=== PATIENT | male | born 1955 | race Caucasian/White ===

== ENCOUNTER 2020-06-28 22:44 | Inpatient (IN) | payer MEDICARE, OTHER ==
[~2020-06-28] VITALS: Ht 180.3 cm; Wt 103.9 kg
[2020-06-28 22:42] VITALS: BP 140/78
[2020-06-28] MEDS ORDERED: MAG HYDROX/AL HYDROX/SIMETH 30 ML LIQUID UDC PO PRN (23:00)
[2020-06-28] MEDS ORDERED: MAGNESIUM HYDROXIDE 30 ML LIQUID UDC PO PRN (23:00)
[2020-06-28] MEDS ORDERED: ACETAMINOPHEN 325 MG TABLET PO PRN (23:00)
[2020-06-28] MEDS ORDERED: BLOOD SUGAR DIAGNOSTIC 1 EACH STRIP VI ONE (23:00)
[2020-06-28] MEDS ORDERED: TAMS-3 PO (23:28)
[2020-06-28] MEDS ORDERED: METF-495 PO (23:28)
[2020-06-28] MEDS ORDERED: SIMV-46 PO (23:28)
[2020-06-28] MEDS ORDERED: [UNRECOGNIZED DRUG - CODE] MC (23:28)
[2020-06-28] MEDS ORDERED: DIVA-78 PO (23:28)
[2020-06-28] MEDS ORDERED: CHOL10002 PO (23:28)
[2020-06-28] MEDS ORDERED: SITA100T PO (23:28)
[2020-06-28] MEDS ORDERED: BUDE10.2 IH (23:28)
[2020-06-28] MEDS ORDERED: ARIP20TA4 PO (23:28)
[2020-06-28] MEDS ORDERED: AMLO10TA4 PO (23:28)
[2020-06-28] MEDS ORDERED: MULT-594 PO (23:28)
[2020-06-28] MEDS ORDERED: [UNRECOGNIZED DRUG - CODE] PO (23:28)
[2020-06-28] MEDS ORDERED: CLOZ150T3 PO (23:28)
--- NOTE | 2020-06-28 23:45 | NUR ---
ADMISSION NOTE: AT APPROX 2245 ADMITTED,ADMITTED 65 YEARS OLD MALE TO [facility] M[facility] ON A 5150 FOR GD. PATIENT WAS BIB AMBULANCE [facility] IN [place]. PER HOLD, PATIENT RESIDES AT [facility] WHERE STAFF REPORTED THAT ON 06/27/2020 AT 1300, PATIENT WAS INCREASINGLY SLURRING HIS SPEECH. SUBSEQUENTLY, HE WAS PLACED ON A 5150 HOLD FOR GROSSLY DISORGANIZED AND ACUTELY PSYCHOTIC. HOLD WILL BE UP ON 07/01/20 AT 1035. UPON ADMISSION, FACE TO FACE ASSESSES WAS DONE, ADVISEMENT WAS GIVEN WELL HIS BOOKLET FOR "PATIENT'S RIGHT FOR MENTAL HEALTH FACILITIES". PATIENT REFLECTS WHAT IS WRITTEN ON THE HOLD. HE IS NOTED A/O X 2. CALM AND COOPERATIVE. HE KNOWS HIS NAME, HE STATED THAT IS THE END OF JUNE AND YEAR 2020 IS NEXT; HOWEVER, HE STATED THAT HE IS IN A HOTEL AND WAS NOT SURE WHY HE WAS BROUGHT TO THE HOSPITAL FOR. PATIENT NOTED TANGENTAL, NONSENSICAL, WORD SALAD AND DISORGANIZED SPEECH. HE DENIED SI/HI/VH/AH. PATIENT SHOWER. ACCUCHECKS 136. BELONGING LIST WAS COMPLETED, CONTRABAND ITEMS WERE REMOVED FROM PATIENT AND SECURED. PATIENT IS UNDER THE CARE OF DR SPARKS AND DR VALENTINO. WILL CONTINUE TO MONITOR.
[2020-06-29 07:30] VITALS: BP 110/76
[2020-06-29] MEDS: NICOTINE 14 MG/24HR PATCH TD SCH (08:49)
[2020-06-29 11:00] LABS: BASOPHILS % (AUTO) 0.3 % (0.0-2.0); EOSINOPHILS # (AUTO) 0.1 K/uL (0.0-0.7); HEMATOCRIT 41.8 % (36.7-47.1); HEMOGLOBIN 14.1 g/dL (12.5-16.3); LYMPHOCYTES # (AUTO) 1.7 K/uL (20.0-40.0); LYMPHOCYTES % (AUTO) 21.3 % (20.5-51.5); MEAN CORPUSCULAR HEMOGLOBIN 29.2 uug (23.8-33.4); MEAN CORPUSCULAR HGB CONC 34 g/dL (32.5-36.3); MEAN CORPUSCULAR VOLUME 86.5 fL (73.0-96.2); MONOCYTES # (AUTO) 0.7 K/uL (2.0-10.0); MONOCYTES % (AUTO) 8.7 % (0.0-11.0); NEUTROPHILS # (AUTO) 5.5 K/uL (1.8-8.9); NEUTROPHILS % (AUTO) 68.7 % (38.5-71.5); PLATELET COUNT (AUTO) 180 K/uL (152-348); RED BLOOD CELL COUNT(AUTO) 4.83 MIL/uL (4.06-5.63)
[2020-06-29] MEDS ORDERED: DEXTROSE 50% 50 ML DISP.SYRIN IV PRN (11:00)
[2020-06-29 11:24] LABS: CREATININE 0.9 mg/dL (0.6-1.3); POTASSIUM 3.9 mmol/L (3.5-5.1)
[2020-06-29] MEDS: BLOOD SUGAR DIAGNOSTIC 1 EACH STRIP VI SCH ×3 (11:30→20:15)
[2020-06-29 12:51] LABS: BILIRUBIN,TOTAL 0.4 mg/dL (0.2-1.0)
[2020-06-29 13:11] LABS: BILIRUBIN,DIRECT 0.1 mg/dL (0.0-0.2)
[2020-06-29 16:00] VITALS: BP 146/72
[2020-06-29] MEDS: INSULIN REGULAR, HUMAN 300 UNIT/3 ML VIAL SQ PRN (16:04)
[2020-06-29] MEDS: ARIPIPRAZOLE 5 MG TABLET PO SCH (16:12)
[2020-06-29] MEDS: DIVALPROEX 250 MG TABLET.DR PO SCH (16:12)
[2020-06-29] MEDS: METFORMIN HCL 500 MG TABLET PO SCH (17:08)
[2020-06-29 20:00] VITALS: BP 124/68
[2020-06-29] MEDS: SIMVASTATIN 20 MG TABLET PO SCH (20:14)
[2020-06-29] MEDS: TAMSULOSIN HCL 0.4 MG CAP.SR.24H PO SCH (20:14)
[2020-06-29] MEDS ORDERED: CLOZAPINE 25 MG TABLET PO SCH ×2 (21:00)
[2020-06-30] MEDS: LORAZEPAM 0.5 MG TABLET PO PRN (05:24)
--- NOTE | 2020-06-30 06:10 | NUR ---
Pt is delusional and disorganized, demands he be called "supreme commander Alexy." (+)AH, Pt is constantly responding to internal stimuli, but denies doing so. Resistant to taking medications, Pt required extensive encouragement and prompting, eventually taking them, but refusing prn when offered. Pt is anxious and labile, fixated and focused on "drinking coffee and smoking a cigarette." Pt educated repeatedly regarding unit rules, but he is not accepting of the information given to him. Pt finally agreed to take a prn late in the shift, Ativan 0.5mg administered with minimal effect. Pt still responding to internal stimuli, no change.
[2020-06-30] MEDS: BLOOD SUGAR DIAGNOSTIC 1 EACH STRIP VI SCH ×4 (06:31→20:26)
[2020-06-30 07:30] VITALS: BP 123/78
[2020-06-30 08:04] LABS: THYROID STIMULATING HORMONE 5.52 mIU/mL (0.358-3.740)
[2020-06-30] MEDS: METFORMIN HCL 500 MG TABLET PO SCH ×2 (08:17→17:50)
[2020-06-30] MEDS: NICOTINE 14 MG/24HR PATCH TD SCH (08:17)
[2020-06-30] MEDS: MULTIVITAMINS,THERAPEUTIC TABLET PO SCH (08:17)
[2020-06-30] MEDS: ARIPIPRAZOLE 5 MG TABLET PO SCH ×3 (08:18→18:01)
[2020-06-30] MEDS: DIVALPROEX 250 MG TABLET.DR PO SCH ×3 (08:18→17:49)
[2020-06-30] MEDS: CHOLECALCIFEROL 1,000 UNIT TABLET PO SCH (08:18)
[2020-06-30 08:28] LABS: MAGNESIUM 2.2 mg/dL (1.8-2.4); PHOSPHOROUS 3.4 mg/dL (2.5-4.9)
[2020-06-30] MEDS: INSULIN REGULAR, HUMAN 300 UNIT/3 ML VIAL SQ PRN ×3 (08:28→20:44)
[2020-06-30] MEDS: FLUTICASONE/VILANTEROL 1 EACH BLST.W.DEV INH SCH (11:00)
[2020-06-30] MEDS: LINAGLIPTIN 5 MG TABLET PO SCH (11:00)
--- NOTE | 2020-06-30 11:29 | NUR ---
SW Family Contact: Pt unable to state who he lives with due to confusion. This SW contacted Amel ([phone]) and left a voicemail to discuss treatment and discharge plan. Pt is unable to state his relation to Amel.
--- NOTE | 2020-06-30 11:29 | NUR ---
SW Initial Discharge Plan: Patient currently resides at [address] [place] [address]; ([phone]). Pt unable to state who he lives with due to confusion. This SW contacted Amel ([phone]) and left a voicemail to discuss treatment and discharge plan. Pt is unable to state his relation to Amel. This SW will work with the MD and treatment team to help coordinate proper discharge.
--- NOTE | 2020-06-30 14:02 | NUR ---
AJAY Collateral Information: AJAY spoke with patient's residential oracle database administrator, Alexandrea ([phone]) who stated that the patient is a resident there for over 20 years. Alexandrea stated that is it a Adult Residential Facility for people with Mental Illness. Alexandrea provided this telegraphic typewriter operator chief with the patient's outpatient's physician's. Alexandrea stated that once the patient's is stable he is welcome back.
[2020-06-30 15:50] VITALS: BP 93/74
[2020-06-30] MEDS: TAMSULOSIN HCL 0.4 MG CAP.SR.24H PO SCH (20:18)
[2020-06-30] MEDS: SIMVASTATIN 20 MG TABLET PO SCH (20:19)
[2020-06-30 20:34] VITALS: BP 156/66
[2020-06-30] MEDS ORDERED: CLOZAPINE 25 MG TABLET PO SCH (21:00)
[2020-06-30] MEDS: TEMAZEPAM 7.5 MG CAPSULE PO PRN (22:18)
[2020-07-01] MEDS: BLOOD SUGAR DIAGNOSTIC 1 EACH STRIP VI SCH ×4 (06:45→22:08)
[2020-07-01 07:30] VITALS: BP 148/70
[2020-07-01] MEDS: DIVALPROEX 250 MG TABLET.DR PO SCH ×3 (08:19→16:23)
[2020-07-01] MEDS: LINAGLIPTIN 5 MG TABLET PO SCH (08:19)
[2020-07-01] MEDS: CHOLECALCIFEROL 1,000 UNIT TABLET PO SCH (08:19)
[2020-07-01] MEDS: METFORMIN HCL 500 MG TABLET PO SCH ×2 (08:19→17:02)
[2020-07-01] MEDS: MULTIVITAMINS,THERAPEUTIC TABLET PO SCH (08:19)
[2020-07-01] MEDS: NICOTINE 14 MG/24HR PATCH TD SCH (08:19)
[2020-07-01] MEDS: ARIPIPRAZOLE 5 MG TABLET PO SCH ×3 (08:20→16:23)
[2020-07-01] MEDS: FLUTICASONE/VILANTEROL 1 EACH BLST.W.DEV INH SCH (08:20)
[2020-07-01] MEDS: INSULIN REGULAR, HUMAN 300 UNIT/3 ML VIAL SQ PRN (08:21)
[2020-07-01 09:36] LABS: BASOPHILS % (AUTO) 0.3 % (0.0-2.0); EOSINOPHILS # (AUTO) 0.1 K/uL (0.0-0.7); EOSINOPHILS % (AUTO) 0.7 % (0.0-7.0); HEMATOCRIT 39.8 % (36.7-47.1); HEMOGLOBIN 14.1 g/dL (12.5-16.3); LYMPHOCYTES # (AUTO) 1.8 K/uL (20.0-40.0); LYMPHOCYTES % (AUTO) 19.4 % (20.5-51.5); MEAN CORPUSCULAR HEMOGLOBIN 30.3 uug (23.8-33.4); MEAN CORPUSCULAR HGB CONC 35 g/dL (32.5-36.3); MEAN CORPUSCULAR VOLUME 85.7 fL (73.0-96.2); MONOCYTES # (AUTO) 0.7 K/uL (2.0-10.0); MONOCYTES % (AUTO) 7.6 % (0.0-11.0); NEUTROPHILS # (AUTO) 6.5 K/uL (1.8-8.9); PLATELET COUNT (AUTO) 175 K/uL (152-348); RED BLOOD CELL COUNT(AUTO) 4.65 MIL/uL (4.06-5.63); WHITE BLOOD COUNT (AUTO) 9.1 K/uL (3.6-10.2)
--- NOTE | 2020-07-01 11:47 | NUR ---
GPS: Nursing Notes: Thought Disorder: Patient is awake and responding to his name, disoriented, impaired judgment, disorganized, poor grooming, resistant with nursing care, episodes of talking incoherently, patient wants staff to address him as "[place] Captain Alexy..", able to ambulate, but using the w/c to move around, when asked why is he using the w/c stated "I don't know...", unable to formulate a viable plan for self care, continue with treatment plan.
[2020-07-01] MEDS ORDERED: ARIPIPRAZOLE 5 MG TABLET PO ONE (13:10)
[2020-07-01 16:00] VITALS: BP 106/73
[2020-07-01 16:31] LABS: EOSINOPHILS % (MANUAL) 1 % (0-8); LYMPHOCYTES % (MANUAL) 22 % (20-40); MONOCYTES % (MANUAL) 7 % (2-10); NEUTROPHILS % (MANUAL) 70 % (42-75)
[2020-07-01 20:12] VITALS: BP 169/71
[2020-07-01] MEDS ORDERED: CLOZAPINE 25 MG TABLET PO SCH (21:00)
[2020-07-01] MEDS: TAMSULOSIN HCL 0.4 MG CAP.SR.24H PO SCH (21:50)
[2020-07-01] MEDS: SIMVASTATIN 20 MG TABLET PO SCH (21:52)
[2020-07-02] MEDS: BLOOD SUGAR DIAGNOSTIC 1 EACH STRIP VI SCH ×4 (06:31→20:28)
[2020-07-02 07:30] VITALS: BP 153/77
[2020-07-02] MEDS: MULTIVITAMINS,THERAPEUTIC TABLET PO SCH (08:42)
[2020-07-02] MEDS: NICOTINE 14 MG/24HR PATCH TD SCH (08:42)
[2020-07-02] MEDS: ARIPIPRAZOLE 5 MG TABLET PO SCH ×3 (08:42→17:20)
[2020-07-02] MEDS: DIVALPROEX 250 MG TABLET.DR PO SCH ×3 (08:42→17:20)
[2020-07-02] MEDS: LINAGLIPTIN 5 MG TABLET PO SCH (08:42)
[2020-07-02] MEDS: METFORMIN HCL 500 MG TABLET PO SCH ×2 (08:42→17:20)
[2020-07-02] MEDS: CHOLECALCIFEROL 1,000 UNIT TABLET PO SCH (08:42)
[2020-07-02] MEDS: FLUTICASONE/VILANTEROL 1 EACH BLST.W.DEV INH SCH (08:43)
[2020-07-02 16:00] VITALS: BP 127/62
[2020-07-02 20:13] VITALS: BP 123/73
[2020-07-02] MEDS: TAMSULOSIN HCL 0.4 MG CAP.SR.24H PO SCH (20:21)
[2020-07-02] MEDS: SIMVASTATIN 20 MG TABLET PO SCH (20:21)
[2020-07-02] MEDS ORDERED: CLOZAPINE 25 MG TABLET PO SCH (21:00)
--- NOTE | 2020-07-03 05:29 | NUR ---
GPS: Patient remain disoriented, impaired judgment, disorganized, episodes of talking incoherently, took shower this morning. calm and cooperative with nursing care. unable to formulate a viable plan for self care, continue with treatment plan.
--- NOTE | 2020-07-03 05:51 | NUR ---
slept 6.15 hrs through the night.
[2020-07-03] MEDS: BLOOD SUGAR DIAGNOSTIC 1 EACH STRIP VI SCH ×4 (06:12→20:16)
[2020-07-03 06:28] LABS: BASOPHILS % (AUTO) 0.6 % (0.0-2.0); EOSINOPHILS # (AUTO) 0.1 K/uL (0.0-0.7); EOSINOPHILS % (AUTO) 1.2 % (0.0-7.0); HEMOGLOBIN 13.6 g/dL (12.5-16.3); LYMPHOCYTES # (AUTO) 1.8 K/uL (20.0-40.0); LYMPHOCYTES % (AUTO) 24.6 % (20.5-51.5); MEAN CORPUSCULAR HEMOGLOBIN 30.2 uug (23.8-33.4); MEAN CORPUSCULAR HGB CONC 35 g/dL (32.5-36.3); MEAN CORPUSCULAR VOLUME 86.5 fL (73.0-96.2); MONOCYTES # (AUTO) 0.8 K/uL (2.0-10.0); NEUTROPHILS # (AUTO) 4.6 K/uL (1.8-8.9); NEUTROPHILS % (AUTO) 62.6 % (38.5-71.5); PLATELET COUNT (AUTO) 173 K/uL (152-348); RED BLOOD CELL COUNT(AUTO) 4.51 MIL/uL (4.06-5.63); WHITE BLOOD COUNT (AUTO) 7.3 K/uL (3.6-10.2)
[2020-07-03 07:30] VITALS: BP 123/66
[2020-07-03] MEDS: METFORMIN HCL 500 MG TABLET PO SCH ×2 (08:30→16:32)
[2020-07-03] MEDS: ARIPIPRAZOLE 5 MG TABLET PO SCH ×3 (08:30→16:32)
[2020-07-03] MEDS: LINAGLIPTIN 5 MG TABLET PO SCH (08:30)
[2020-07-03] MEDS: DIVALPROEX 250 MG TABLET.DR PO SCH ×3 (08:31→16:33)
[2020-07-03] MEDS: CHOLECALCIFEROL 1,000 UNIT TABLET PO SCH (08:31)
[2020-07-03] MEDS: MULTIVITAMINS,THERAPEUTIC TABLET PO SCH (08:31)
[2020-07-03] MEDS: NICOTINE 14 MG/24HR PATCH TD SCH (08:32)
[2020-07-03] MEDS: FLUTICASONE/VILANTEROL 1 EACH BLST.W.DEV INH SCH (08:46)
[2020-07-03] MEDS: INSULIN REGULAR, HUMAN 300 UNIT/3 ML VIAL SQ PRN ×2 (08:59→12:05)
--- NOTE | 2020-07-03 10:30 | NUR ---
AJAY PC Hearing: Patient had probable cause hearing today and it was upheld for grave disability.
--- NOTE | 2020-07-03 11:27 | NUR ---
Gps/Silk Examiner- Stayed in his group therapy, had been cooperative with staff providing care, compliant with his routine medications.
[2020-07-03 15:52] VITALS: BP 158/78
--- NOTE | 2020-07-03 16:59 | NUR ---
Gps/Regasification Plant Operator- Had been cooperative with staff, mumbles, talking to himself , speech gets incoherent, compliant with his routine meds. remains in the activity room, no interaction with peers.
--- NOTE | 2020-07-03 17:58 | NUR ---
Gps/Manager Intermediate- Poor appetite , refused meals, likes to drink coffee , and juice, eats jello , fruit cocktail, encouraged to eat, offered food selections.
[2020-07-03] MEDS: TAMSULOSIN HCL 0.4 MG CAP.SR.24H PO SCH (20:07)
[2020-07-03] MEDS: SIMVASTATIN 20 MG TABLET PO SCH (20:07)
[2020-07-03 20:08] VITALS: BP 167/81
[2020-07-03] MEDS: CLOZAPINE 25 MG TABLET PO SCH (20:08)
--- NOTE | 2020-07-03 21:00 | NUR ---
Pt refused to eat anything at snack time despite encouragement from staff. Pt only drank 2 pints of milk. Will continue to monitor.
--- NOTE | 2020-07-04 03:34 | NUR ---
Pt noted to have productive cough with white sputum. Covid test given to Pt and swab sent to lab.
[2020-07-04 07:30] VITALS: BP 168/80
[2020-07-04] MEDS: BLOOD SUGAR DIAGNOSTIC 1 EACH STRIP VI SCH ×4 (07:36→20:15)
[2020-07-04] MEDS: ARIPIPRAZOLE 5 MG TABLET PO SCH ×3 (08:07→17:39)
[2020-07-04] MEDS: CHOLECALCIFEROL 1,000 UNIT TABLET PO SCH (08:08)
[2020-07-04] MEDS: LINAGLIPTIN 5 MG TABLET PO SCH (08:08)
[2020-07-04] MEDS: DIVALPROEX 250 MG TABLET.DR PO SCH ×3 (08:08→17:39)
[2020-07-04] MEDS: NICOTINE 14 MG/24HR PATCH TD SCH (08:08)
[2020-07-04] MEDS: MULTIVITAMINS,THERAPEUTIC TABLET PO SCH (08:08)
[2020-07-04] MEDS: METFORMIN HCL 500 MG TABLET PO SCH ×2 (08:08→17:39)
[2020-07-04] MEDS: FLUTICASONE/VILANTEROL 1 EACH BLST.W.DEV INH SCH (08:09)
[2020-07-04 16:13] VITALS: BP 177/77
[2020-07-04 20:00] VITALS: BP 159/73
[2020-07-04] MEDS: TAMSULOSIN HCL 0.4 MG CAP.SR.24H PO SCH (20:14)
[2020-07-04] MEDS: SIMVASTATIN 20 MG TABLET PO SCH (20:14)
[2020-07-04] MEDS: CLOZAPINE 25 MG TABLET PO SCH (20:15)
[2020-07-04] MEDS: LORAZEPAM 0.5 MG TABLET PO PRN (22:18)
[2020-07-05] MEDS: TEMAZEPAM 7.5 MG CAPSULE PO PRN (00:18)
--- NOTE | 2020-07-05 05:41 | NUR ---
PATIENT AWAKE BUT WITH CONFUSION, NO EPISODE OF COUGHING ON THIS SHIFT, PATIENT HAS EPISODE OF AGITATION, BANGING THE TABLE AT THE DINING AREA, REDIRECT BEHAVIOR WITH, PROVIDE SNACK TO DISTRACT BEHAVIOR. PATIENT ALSO GIVEN SLEEPING MEDICATION FOR INSOMNIA, BUT SLEPT FOR 3.45 HOURS, CONT TO MONITOR.
[2020-07-05] MEDS: BLOOD SUGAR DIAGNOSTIC 1 EACH STRIP VI SCH ×4 (06:16→20:15)
[2020-07-05 07:30] VITALS: BP 109/71
[2020-07-05] MEDS: METFORMIN HCL 500 MG TABLET PO SCH ×2 (08:00→17:11)
[2020-07-05] MEDS: DIVALPROEX 250 MG TABLET.DR PO SCH ×3 (08:00→16:06)
[2020-07-05] MEDS: MULTIVITAMINS,THERAPEUTIC TABLET PO SCH (08:00)
[2020-07-05] MEDS: LINAGLIPTIN 5 MG TABLET PO SCH (08:00)
[2020-07-05] MEDS: CHOLECALCIFEROL 1,000 UNIT TABLET PO SCH (08:00)
[2020-07-05] MEDS: ARIPIPRAZOLE 5 MG TABLET PO SCH ×3 (08:01→16:06)
[2020-07-05] MEDS: NICOTINE 14 MG/24HR PATCH TD SCH (08:01)
[2020-07-05] MEDS: FLUTICASONE/VILANTEROL 1 EACH BLST.W.DEV INH SCH (08:02)
[2020-07-05 16:00] VITALS: BP 151/87
[2020-07-05 20:00] VITALS: BP 149/74
[2020-07-05] MEDS: TAMSULOSIN HCL 0.4 MG CAP.SR.24H PO SCH (20:00)
[2020-07-05] MEDS: CLOZAPINE 25 MG TABLET PO SCH (20:00)
[2020-07-05] MEDS: SIMVASTATIN 20 MG TABLET PO SCH (20:01)
[2020-07-06] MEDS: BLOOD SUGAR DIAGNOSTIC 1 EACH STRIP VI SCH ×4 (06:30→20:43)
[2020-07-06 07:30] VITALS: BP 139/75
[2020-07-06] MEDS: NICOTINE 14 MG/24HR PATCH TD SCH (08:29)
[2020-07-06] MEDS: DIVALPROEX 250 MG TABLET.DR PO SCH ×3 (08:29→16:25)
[2020-07-06] MEDS: FLUTICASONE/VILANTEROL 1 EACH BLST.W.DEV INH SCH (08:29)
[2020-07-06] MEDS: ARIPIPRAZOLE 5 MG TABLET PO SCH ×3 (08:29→16:25)
[2020-07-06] MEDS: CHOLECALCIFEROL 1,000 UNIT TABLET PO SCH (08:30)
[2020-07-06] MEDS: METFORMIN HCL 500 MG TABLET PO SCH ×2 (08:30→17:21)
[2020-07-06] MEDS: LINAGLIPTIN 5 MG TABLET PO SCH (08:30)
[2020-07-06] MEDS: MULTIVITAMINS,THERAPEUTIC TABLET PO SCH (09:01)
[2020-07-06 15:05] VITALS: BP 147/83
[2020-07-06 20:00] VITALS: BP 164/79
[2020-07-06] MEDS: CLOZAPINE 25 MG TABLET PO SCH (20:41)
[2020-07-06] MEDS: TAMSULOSIN HCL 0.4 MG CAP.SR.24H PO SCH (20:42)
[2020-07-06] MEDS: SIMVASTATIN 20 MG TABLET PO SCH (20:42)
[2020-07-07] MEDS: BLOOD SUGAR DIAGNOSTIC 1 EACH STRIP VI SCH ×4 (06:28→21:00)
--- NOTE | 2020-07-07 06:45 | NUR ---
Monitor Pt with few episode of incoherent noted, and Pt stripped naked in bed and refused to cover himself during night. No aggressive behavior noted and Pt cooperative with all due care. Blood sugar at 89 WNL.
[2020-07-07 07:30] VITALS: BP 131/78
[2020-07-07] MEDS: DIVALPROEX 250 MG TABLET.DR PO SCH ×3 (08:11→16:31)
[2020-07-07] MEDS: NICOTINE 14 MG/24HR PATCH TD SCH (08:11)
[2020-07-07] MEDS: CHOLECALCIFEROL 1,000 UNIT TABLET PO SCH (08:11)
[2020-07-07] MEDS: ARIPIPRAZOLE 5 MG TABLET PO SCH ×3 (08:12→16:31)
[2020-07-07] MEDS: LINAGLIPTIN 5 MG TABLET PO SCH (08:12)
[2020-07-07] MEDS: METFORMIN HCL 500 MG TABLET PO SCH ×2 (08:12→18:10)
[2020-07-07] MEDS: MULTIVITAMINS,THERAPEUTIC TABLET PO SCH (08:12)
[2020-07-07] MEDS: FLUTICASONE/VILANTEROL 1 EACH BLST.W.DEV INH SCH (08:12)
[2020-07-07 15:36] VITALS: BP 167/86
[2020-07-07] MEDS: INSULIN REGULAR, HUMAN 300 UNIT/3 ML VIAL SQ PRN (16:38)
[2020-07-07 19:46] VITALS: BP 156/78
[2020-07-07] MEDS: TAMSULOSIN HCL 0.4 MG CAP.SR.24H PO SCH (20:13)
[2020-07-07] MEDS: CLOZAPINE 25 MG TABLET PO SCH (20:14)
[2020-07-07] MEDS: SIMVASTATIN 20 MG TABLET PO SCH (20:14)
[2020-07-08] MEDS: BLOOD SUGAR DIAGNOSTIC 1 EACH STRIP VI SCH ×4 (07:03→20:24)
[2020-07-08 07:30] VITALS: BP 147/81
[2020-07-08] MEDS: ARIPIPRAZOLE 5 MG TABLET PO SCH ×3 (08:42→16:34)
[2020-07-08] MEDS: MULTIVITAMINS,THERAPEUTIC TABLET PO SCH (08:42)
[2020-07-08] MEDS: METFORMIN HCL 500 MG TABLET PO SCH ×2 (08:42→17:06)
[2020-07-08] MEDS: DIVALPROEX 250 MG TABLET.DR PO SCH (08:42)
[2020-07-08] MEDS: LINAGLIPTIN 5 MG TABLET PO SCH (08:43)
[2020-07-08] MEDS: CHOLECALCIFEROL 1,000 UNIT TABLET PO SCH (08:43)
[2020-07-08] MEDS: NICOTINE 14 MG/24HR PATCH TD SCH (08:43)
[2020-07-08] MEDS: FLUTICASONE/VILANTEROL 1 EACH BLST.W.DEV INH SCH (08:47)
--- NOTE | 2020-07-08 11:14 | NUR ---
Adult Residential Facility Contact: AJAY spoke with patient's residential data security administrator, Alexandrea ([phone]), and informed her that the pt is going to be discharged the following day. She stated that she wanted to go over the medications with the SW and expressed concerns with the lower dosage of clozaril. AJAY stated that the MD feels that the pt is appropriate for discharge. Alexandrea then stated that she would like to assess the pt around 12:30pm today. AJAY stated that she would set up a meeting (as Alexandrea did not know how) and stated that the link would be emailed to her at [email or web address].
--- NOTE | 2020-07-08 11:53 | NUR ---
Adult Residential Facility Contact: AJAY spoke with patient's residential project administrator, Alexandrea ([phone]), and informed her that the SW spoke to the pts MD and she stated that she wanted to slowly increase the clozaril on Tuesday and Tuesday and then evaluate the pt on for a possible discharge for Tuesday. Pts project administrator stated that she felt that was a good idea and stated that she will assess the pt on via zoom. SW will set up the zoom meeting as discussed.
[2020-07-08] MEDS ORDERED: DIVALPROEX 250 MG TABLET.DR PO SCH (13:00)
[2020-07-08 15:33] LABS: BASOPHILS % (AUTO) 0.6 % (0.0-2.0); EOSINOPHILS # (AUTO) 0.1 K/uL (0.0-0.7); EOSINOPHILS % (AUTO) 0.9 % (0.0-7.0); HEMATOCRIT 42.3 % (36.7-47.1); HEMOGLOBIN 13.9 g/dL (12.5-16.3); LYMPHOCYTES # (AUTO) 2.5 K/uL (20.0-40.0); LYMPHOCYTES % (AUTO) 38.1 % (20.5-51.5); MEAN CORPUSCULAR HGB CONC 33 g/dL (32.5-36.3); MEAN CORPUSCULAR VOLUME 88.1 fL (73.0-96.2); MONOCYTES # (AUTO) 0.7 K/uL (2.0-10.0); MONOCYTES % (AUTO) 11.3 % (0.0-11.0); NEUTROPHILS # (AUTO) 3.2 K/uL (1.8-8.9); NEUTROPHILS % (AUTO) 49.1 % (38.5-71.5); PLATELET COUNT (AUTO) 200 K/uL (152-348); WHITE BLOOD COUNT (AUTO) 6.5 K/uL (3.6-10.2)
[2020-07-08 15:50] LABS: BILIRUBIN,TOTAL 0.4 mg/dL (0.2-1.0); CREATININE 0.8 mg/dL (0.6-1.3); POTASSIUM 4.4 mmol/L (3.5-5.1); TOTAL PROTEIN, SERUM 6.9 g/dL (6.4-8.2)
[2020-07-08 15:58] VITALS: BP 171/85
[2020-07-08 16:33] VITALS: BP 141/78
[2020-07-08] MEDS: DIVALPROEX 500 MG TABLET.DR PO SCH (16:33)
[2020-07-08] MEDS: SIMVASTATIN 20 MG TABLET PO SCH (20:25)
[2020-07-08] MEDS: TAMSULOSIN HCL 0.4 MG CAP.SR.24H PO SCH (20:25)
[2020-07-08 20:39] VITALS: BP 134/79
[2020-07-08] MEDS ORDERED: CLOZAPINE 25 MG TABLET PO SCH (21:00)
[2020-07-08] MEDS ORDERED: CLOZAPINE 100 MG TABLET PO SCH (21:00)
--- NOTE | 2020-07-09 04:57 | NUR ---
Patient asleep but arousable, patient cooperative with medication and care. Patient has no behavioral problem noted on this shift. cont to monitor.
[2020-07-09] MEDS: BLOOD SUGAR DIAGNOSTIC 1 EACH STRIP VI SCH ×4 (06:31→20:33)
--- NOTE | 2020-07-09 06:42 | NUR ---
Patient awake, slept for 6:45 minutes, blood sugar 89, given snack.
[2020-07-09 07:30] VITALS: BP 153/78
[2020-07-09] MEDS: ARIPIPRAZOLE 5 MG TABLET PO SCH ×3 (08:50→17:17)
[2020-07-09] MEDS: METFORMIN HCL 500 MG TABLET PO SCH ×2 (08:50→17:17)
[2020-07-09] MEDS: LINAGLIPTIN 5 MG TABLET PO SCH (08:50)
[2020-07-09] MEDS: CHOLECALCIFEROL 1,000 UNIT TABLET PO SCH (08:50)
[2020-07-09] MEDS: DIVALPROEX 125 MG TABLET.DR PO SCH ×2 (08:50→12:14)
[2020-07-09] MEDS: NICOTINE 14 MG/24HR PATCH TD SCH (08:51)
[2020-07-09] MEDS: FLUTICASONE/VILANTEROL 1 EACH BLST.W.DEV INH SCH (08:51)
[2020-07-09] MEDS: MULTIVITAMINS,THERAPEUTIC TABLET PO SCH (08:51)
[2020-07-09 10:08] VITALS: BP 153/78
--- NOTE | 2020-07-09 12:15 | NUR ---
Adult Residential Facility Contact: AJAY spoke with patient's residential database administrator, Alexandrea ([phone]), and informed her that the pts MD is working on titrating the pts Cloraril dose to 300mg and therefore the pts discharge is going to be postponed to Tuesday. Alexandrea stated that she was grateful for that as she did not think the pt should be discharged on a lower dose than he was originally thinking. AJAY stated that they will schedule the assessment for Tuesday since the discharge has been postponed.
[2020-07-09] MEDS: INSULIN REGULAR, HUMAN 300 UNIT/3 ML VIAL SQ PRN (12:18)
[2020-07-09 16:00] VITALS: BP 139/73
[2020-07-09] MEDS: DIVALPROEX 500 MG TABLET.DR PO SCH (17:18)
[2020-07-09 20:00] VITALS: BP 159/70
[2020-07-09] MEDS: SIMVASTATIN 20 MG TABLET PO SCH (20:27)
[2020-07-09] MEDS: TAMSULOSIN HCL 0.4 MG CAP.SR.24H PO SCH (20:29)
[2020-07-09] MEDS ORDERED: CLOZAPINE 100 MG TABLET PO SCH (21:00)
--- NOTE | 2020-07-09 22:23 | NUR ---
PATIENT RECEIVED IN ROOM SITTING UP IN CHAIR. PATIENT ALERT/ORIENTED TO NAME. PATIENT CALM UPON APPROACH AND COOPERATIVE. PATIENT HAS RAPID SPEECH RESPONDING TO INTERNAL STIMULI. PATIENT COMPLAINT WITH MEDICATION. NO AGGRESSIVE OR COMBATIVE BEHAVIOR NOTED. PATIENT IS EASILY REDIRECTED. SAFE ENVIRONMENT PROVIDED, FREQUENT ROUNDING, AND CLUTTER FREE ENVIRONMENT. BED IN LOWEST POSITION AND BED LOCKED.
[2020-07-10] MEDS: BLOOD SUGAR DIAGNOSTIC 1 EACH STRIP VI SCH ×4 (06:32→20:29)
[2020-07-10 07:30] VITALS: BP 152/73
[2020-07-10] MEDS: DIVALPROEX 125 MG TABLET.DR PO SCH ×2 (08:35→12:13)
[2020-07-10] MEDS: METFORMIN HCL 500 MG TABLET PO SCH ×2 (08:35→17:09)
[2020-07-10] MEDS: LINAGLIPTIN 5 MG TABLET PO SCH (08:36)
[2020-07-10] MEDS: MULTIVITAMINS,THERAPEUTIC TABLET PO SCH (08:36)
[2020-07-10] MEDS: CHOLECALCIFEROL 1,000 UNIT TABLET PO SCH (08:36)
[2020-07-10] MEDS: ARIPIPRAZOLE 5 MG TABLET PO SCH ×3 (08:36→16:48)
[2020-07-10] MEDS: FLUTICASONE/VILANTEROL 1 EACH BLST.W.DEV INH SCH (08:36)
[2020-07-10] MEDS: NICOTINE 14 MG/24HR PATCH TD SCH (08:36)
[2020-07-10 16:00] VITALS: BP 154/74
[2020-07-10] MEDS: DIVALPROEX 500 MG TABLET.DR PO SCH (16:48)
[2020-07-10 20:00] VITALS: BP 114/75
[2020-07-10] MEDS: TAMSULOSIN HCL 0.4 MG CAP.SR.24H PO SCH (20:25)
[2020-07-10] MEDS: CLOZAPINE 100 MG TABLET PO SCH (20:25)
[2020-07-10] MEDS: SIMVASTATIN 20 MG TABLET PO SCH (20:25)
[2020-07-11] MEDS: BLOOD SUGAR DIAGNOSTIC 1 EACH STRIP VI SCH ×4 (06:50→20:26)
[2020-07-11 07:30] VITALS: BP 144/77
--- NOTE | 2020-07-11 07:30 | NUR ---
Received patient sitting in dining room, patient watching TV, poor insight, self care. patient compliant with medication, patient responding to internal stimuli, having auditory hallucination, patient verbalizes that its not bothering him at all, patient on monitoring [id number] for safety will continue monitor
[2020-07-11 07:57] LABS: BASOPHILS % (AUTO) 0.7 % (0.0-2.0); EOSINOPHILS # (AUTO) 0.1 K/uL (0.0-0.7); EOSINOPHILS % (AUTO) 2.1 % (0.0-7.0); HEMATOCRIT 41.7 % (36.7-47.1); HEMOGLOBIN 14.2 g/dL (12.5-16.3); LYMPHOCYTES # (AUTO) 1.7 K/uL (20.0-40.0); MEAN CORPUSCULAR HEMOGLOBIN 29.7 uug (23.8-33.4); MEAN CORPUSCULAR HGB CONC 34 g/dL (32.5-36.3); MEAN CORPUSCULAR VOLUME 87.2 fL (73.0-96.2); MONOCYTES # (AUTO) 0.6 K/uL (2.0-10.0); MONOCYTES % (AUTO) 10.5 % (0.0-11.0); NEUTROPHILS # (AUTO) 3.3 K/uL (1.8-8.9); NEUTROPHILS % (AUTO) 57.7 % (38.5-71.5); PLATELET COUNT (AUTO) 182 K/uL (152-348); RED BLOOD CELL COUNT(AUTO) 4.79 MIL/uL (4.06-5.63); WHITE BLOOD COUNT (AUTO) 5.8 K/uL (3.6-10.2)
[2020-07-11 08:14] LABS: BILIRUBIN,TOTAL 0.3 mg/dL (0.2-1.0); CREATININE 0.9 mg/dL (0.6-1.3); TOTAL PROTEIN, SERUM 6.7 g/dL (6.4-8.2)
[2020-07-11] MEDS: METFORMIN HCL 500 MG TABLET PO SCH ×2 (08:35→17:06)
[2020-07-11] MEDS: DIVALPROEX 500 MG TABLET.DR PO SCH ×3 (08:35→16:15)
[2020-07-11] MEDS: FLUTICASONE/VILANTEROL 1 EACH BLST.W.DEV INH SCH (08:35)
[2020-07-11] MEDS: CHOLECALCIFEROL 1,000 UNIT TABLET PO SCH (08:36)
[2020-07-11] MEDS: LINAGLIPTIN 5 MG TABLET PO SCH (08:36)
[2020-07-11] MEDS: ARIPIPRAZOLE 5 MG TABLET PO SCH ×3 (08:36→16:15)
[2020-07-11] MEDS: NICOTINE 14 MG/24HR PATCH TD SCH (08:36)
[2020-07-11] MEDS: MULTIVITAMINS,THERAPEUTIC TABLET PO SCH (08:36)
[2020-07-11 16:00] VITALS: BP 144/89
--- NOTE | 2020-07-11 18:11 | NUR ---
patient enjoying watching TV , participated in group therapy, patient redirectable, , denies SI and HI, patient monitored [id number], no sign of any distress , patient responded well with questions, will continue monitor
[2020-07-11 20:00] VITALS: BP 160/92
[2020-07-11] MEDS: CLOZAPINE 100 MG TABLET PO SCH (20:18)
[2020-07-11] MEDS: TAMSULOSIN HCL 0.4 MG CAP.SR.24H PO SCH (20:18)
[2020-07-11] MEDS: SIMVASTATIN 20 MG TABLET PO SCH (20:19)
[2020-07-11 21:00] VITALS: BP 169/70
--- NOTE | 2020-07-11 21:00 | NUR ---
patient blood pressure 169/70 hr 80. called kassandra Orantes. Received order give clonidine 0.1 mg po for blood pressure >160. meds given as ordered. continue monitoring for htn and safety.
[2020-07-11] MEDS ORDERED: CLONIDINE HCL 0.1 MG TABLET PO PRN (21:15)
[2020-07-11 22:30] VITALS: BP 144/76
--- NOTE | 2020-07-11 22:40 | NUR ---
PATIENT B/P 144/76 PRN EFFECTIVE.
--- NOTE | 2020-07-12 06:00 | NUR ---
Gps: remain confused and disoriented . slept 7 hrs through the night. cooperative with meds and care. resting in bed comfortably. continue plan of care.
[2020-07-12] MEDS: BLOOD SUGAR DIAGNOSTIC 1 EACH STRIP VI SCH (06:22)
--- NOTE | 2020-07-12 07:00 | NUR ---
received patient AOx 1, patient sitting in dining room, poor insight, responding to internal stimuli, patient calm cooperative, denies AH/VH, patient on monitoring for safety, no sign of distress at this time
[2020-07-12 07:57] VITALS: BP 132/71
[2020-07-12] MEDS: METFORMIN HCL 500 MG TABLET PO SCH ×2 (08:06→17:03)
[2020-07-12] MEDS: DIVALPROEX 500 MG TABLET.DR PO SCH ×2 (08:06→12:01)
[2020-07-12] MEDS: ARIPIPRAZOLE 5 MG TABLET PO SCH ×3 (08:29→16:12)
[2020-07-12] MEDS: CHOLECALCIFEROL 1,000 UNIT TABLET PO SCH (08:29)
[2020-07-12] MEDS: MULTIVITAMINS,THERAPEUTIC TABLET PO SCH (08:29)
[2020-07-12] MEDS: LINAGLIPTIN 5 MG TABLET PO SCH (08:29)
[2020-07-12] MEDS: NICOTINE 14 MG/24HR PATCH TD SCH (08:30)
[2020-07-12] MEDS: FLUTICASONE/VILANTEROL 1 EACH BLST.W.DEV INH SCH (08:30)
[2020-07-12] MEDS: DIVALPROEX 250 MG TABLET.DR PO SCH (16:12)
[2020-07-12 16:34] VITALS: BP 143/72
--- NOTE | 2020-07-12 18:07 | NUR ---
patient been calm, cooperative, able to redirect, patient self care responding to internal stimuli, denies AH/VH, patient denies SI and HI, been compliant with his medication , was monitored [id number] for safety , no sign of any distress at this time
[2020-07-12] MEDS: SIMVASTATIN 20 MG TABLET PO SCH (20:31)
[2020-07-12] MEDS: CLOZAPINE 100 MG TABLET PO SCH (20:31)
[2020-07-12] MEDS: TAMSULOSIN HCL 0.4 MG CAP.SR.24H PO SCH (20:31)
[2020-07-12 20:47] VITALS: BP 137/83
--- NOTE | 2020-07-13 06:15 | NUR ---
Gps: Remain confused and disoriented . slept 7 hrs through the night. cooperative with meds and care. awake lying in bed comfortably. No agitation noted. continue plan of care.
[2020-07-13 08:05] LABS: BASOPHILS % (AUTO) 0.4 % (0.0-2.0); EOSINOPHILS # (AUTO) 0.1 K/uL (0.0-0.7); EOSINOPHILS % (AUTO) 1.2 % (0.0-7.0); HEMATOCRIT 39.9 % (36.7-47.1); HEMOGLOBIN 13.6 g/dL (12.5-16.3); LYMPHOCYTES # (AUTO) 1.5 K/uL (20.0-40.0); LYMPHOCYTES % (AUTO) 26.1 % (20.5-51.5); MEAN CORPUSCULAR HEMOGLOBIN 29.6 uug (23.8-33.4); MEAN CORPUSCULAR HGB CONC 34 g/dL (32.5-36.3); MEAN CORPUSCULAR VOLUME 86.9 fL (73.0-96.2); MONOCYTES # (AUTO) 0.6 K/uL (2.0-10.0); MONOCYTES % (AUTO) 9.5 % (0.0-11.0); NEUTROPHILS # (AUTO) 3.7 K/uL (1.8-8.9); NEUTROPHILS % (AUTO) 62.8 % (38.5-71.5); PLATELET COUNT (AUTO) 173 K/uL (152-348); RED BLOOD CELL COUNT(AUTO) 4.59 MIL/uL (4.06-5.63); WHITE BLOOD COUNT (AUTO) 5.9 K/uL (3.6-10.2)
[2020-07-13 08:18] LABS: BILIRUBIN,TOTAL 0.4 mg/dL (0.2-1.0); CREATININE 0.9 mg/dL (0.6-1.3); POTASSIUM 3.7 mmol/L (3.5-5.1); TOTAL PROTEIN, SERUM 6.3 g/dL (6.4-8.2)
[2020-07-13] MEDS: MULTIVITAMINS,THERAPEUTIC TABLET PO SCH (08:20)
[2020-07-13] MEDS: CHOLECALCIFEROL 1,000 UNIT TABLET PO SCH (08:20)
[2020-07-13] MEDS: LINAGLIPTIN 5 MG TABLET PO SCH (08:20)
[2020-07-13] MEDS: METFORMIN HCL 500 MG TABLET PO SCH ×2 (08:20→16:58)
[2020-07-13] MEDS: NICOTINE 14 MG/24HR PATCH TD SCH (08:21)
[2020-07-13] MEDS: ARIPIPRAZOLE 5 MG TABLET PO SCH ×3 (08:21→16:58)
[2020-07-13] MEDS: DIVALPROEX 500 MG TABLET.DR PO SCH ×2 (08:21→12:23)
[2020-07-13] MEDS: FLUTICASONE/VILANTEROL 1 EACH BLST.W.DEV INH SCH (08:22)
[2020-07-13 10:00] VITALS: BP 136/70
[2020-07-13 15:54] VITALS: BP 156/90
[2020-07-13] MEDS: DIVALPROEX 250 MG TABLET.DR PO SCH (16:58)
[2020-07-13 20:00] VITALS: BP 156/83
[2020-07-13] MEDS: SIMVASTATIN 20 MG TABLET PO SCH (20:45)
[2020-07-13] MEDS: CLOZAPINE 100 MG TABLET PO SCH (20:45)
[2020-07-13] MEDS: TAMSULOSIN HCL 0.4 MG CAP.SR.24H PO SCH (20:46)
--- NOTE | 2020-07-14 04:55 | NUR ---
VS stable. denies pain. Remains focused on drinking coffee and smoking cigarettes. Pt reminded of unit rules. Continues to respond to internal stimuli, but less so. Redirection provided as needed. Denies SI/HI, able to verbally contract for safety. Compliant with medications.
[2020-07-14 07:30] VITALS: BP 163/80
[2020-07-14] MEDS: NICOTINE 14 MG/24HR PATCH TD SCH (08:13)
[2020-07-14] MEDS: CHOLECALCIFEROL 1,000 UNIT TABLET PO SCH (08:13)
[2020-07-14] MEDS: METFORMIN HCL 500 MG TABLET PO SCH ×2 (08:13→17:02)
[2020-07-14] MEDS: DIVALPROEX 500 MG TABLET.DR PO SCH ×2 (08:14→12:10)
[2020-07-14] MEDS: LINAGLIPTIN 5 MG TABLET PO SCH (08:14)
[2020-07-14] MEDS: MULTIVITAMINS,THERAPEUTIC TABLET PO SCH (08:14)
[2020-07-14] MEDS: ARIPIPRAZOLE 5 MG TABLET PO SCH ×3 (08:14→16:26)
[2020-07-14] MEDS: FLUTICASONE/VILANTEROL 1 EACH BLST.W.DEV INH SCH (08:17)
[2020-07-14 10:26] LABS: POTASSIUM 4.4 mmol/L (3.5-5.1)
[2020-07-14] MEDS: CLOZAPINE 25 MG TABLET PO SCH ×2 (10:50→16:26)
--- NOTE | 2020-07-14 12:54 | NUR ---
patient's sodium level is 128, and Vlad CITY SECRETARY made aware with new order made.
--- NOTE | 2020-07-14 14:41 | NUR ---
Discharge Note: Patient will be discharged to [facility], [facility] [place] [address] ([phone]) via Ambulance transportation at 4PM today. Hog Room Supervisor spoke with Yonsa, Costume Maker at [facility] ([phone]) who confirmed that patient will be accepted at their facility today. Patient is alert and oriented x4. Patient is not able to plan for self-care at this time but is willing to accept care provided for him at the facility. Patient denies suicidal or homicidal ideation. Patient is aware and agreeable with discharge plans. Patient presents with appropriate mood and congruent affect. Patient will follow-up with Psychiatrist Dr. Haji and Master Automotive Glass Technician Dr. Cooper at [facility].
--- NOTE | 2020-07-14 14:42 | NUR ---
SW Facility Contact: This SW contacted patient's facility [facility] and left a voicemail for Alexandrea win ([phone]) that patient is accepted at [facility] and will be discharged today.
[2020-07-14 15:26] VITALS: BP 99/82
[2020-07-14] MEDS ORDERED: DIVALPROEX 250 MG TABLET.DR PO SCH (17:00)
[2020-07-14] MEDS ORDERED: SODIUM CHLORIDE 1,000 MG TABLET PO SCH (17:00)
--- NOTE | 2020-07-14 18:57 | NUR ---
DISCHARGE NOTE: Patient discharged to [facility]. Patient picked up and transported by nonemergency ambulance. Patient's valuables (dooley money, jewelry, wallet, cards) and belongings inventoried and returned to patient. Discharge prescriptions and paperwork given to EMT. Patient provided with education about discharge instructions, follow up care, and medications, able to verbalize understanding. Patient is COVID negative upon discharge. Patient escorted off the unit with no adverse event.
== END 2020-07-14 19:00 | DRG 885 ==
LOC: GPS 22:44
PROVIDERS: ADMIT Psychiatry & Neurology Psychosomatic Medicine; ATTEND Internal Medicine
DX: F20.9 Schizophrenia, unspecified (principal); F01.50 Vascular dementia, unspecified severity, without behavioral disturbance, psychotic disturbance, mood disturbance, and anxiety; I11.0 Hypertensive heart disease with heart failure; E11.65 Type 2 diabetes mellitus with hyperglycemia; E87.1 Hypo-osmolality and hyponatremia; E78.1 Pure hyperglyceridemia; E66.9 Obesity, unspecified; Z68.26 Body mass index [BMI] 26.0-26.9, adult; E78.5 Hyperlipidemia, unspecified; I50.9 Heart failure, unspecified; N40.0 Benign prostatic hyperplasia without lower urinary tract symptoms; Z20.828 Contact with and (suspected) exposure to other viral communicable diseases; F19.90 Other psychoactive substance use, unspecified, uncomplicated
CPT/HCPCS: 36415; 70030-TC; 80164; 83735; 84100; 84443; 85025; J1815; J3490

== ENCOUNTER 2021-03-17 18:22 | Inpatient (IN) | payer MEDICARE, OTHER ==
[~2021-03-17] VITALS: Ht 180.3 cm; Wt 107.0 kg
[~2021-03-17 18:22] MED LIST: AMLO10TA4 PO; ARIP20TA4 PO; BUDE10.2 IH; CHOL10002 PO; DIVA-78 PO; METF-495 PO; MULT-594 PO; SIMV-46 PO; SITA100T PO; TAMS-3 PO; [UNRECOGNIZED DRUG - CODE] MC; [UNRECOGNIZED DRUG - CODE] PO; [UNRECOGNIZED DRUG - CODE] PO
[2021-03-17] MEDS ORDERED: AMLO10TA59 PO (19:26)
[2021-03-17] MEDS ORDERED: FLUT1BLS IH (19:26)
[2021-03-17] MEDS ORDERED: ACET-2154 PO (19:26)
[2021-03-17] MEDS ORDERED: POLY17PO4 PO (19:26)
[2021-03-17] MEDS ORDERED: NA P133E RC (19:26)
[2021-03-17] MEDS ORDERED: SENN-22 PO (19:26)
[2021-03-17] MEDS ORDERED: DIVA500T54 PO (19:26)
[2021-03-17] MEDS ORDERED: CLOZ100T32 PO (19:26)
[2021-03-17] MEDS ORDERED: BISA10SU61 RC (19:26)
[2021-03-17] MEDS ORDERED: MAGN400O6 PO (19:26)
[2021-03-17 20:39] LABS: HEMATOCRIT 38.9 % (36.7-47.1); MEAN CORPUSCULAR HEMOGLOBIN 28.6 uug (23.8-33.4); MEAN CORPUSCULAR VOLUME 83.4 fL (73.0-96.2); PLATELET COUNT (AUTO) 196 K/uL (152-348)
[2021-03-17 20:48] LABS: CARBON DIOXIDE 22 mmol/L (21-32); CHLORIDE 96 mmol/L (98-107); CREATININE 0.8 mg/dL (0.6-1.3); GLUCOSE 121 mg/dL (74-106); POTASSIUM 3.7 mmol/L (3.5-5.1); UREA NITROGEN, BLOOD 12 mg/dL (7-18)
[2021-03-17 20:54] LABS: ALANINE AMINOTRANSFERASE 25 U/L (16-63); ALKALINE PHOSPHATASE 117 U/L (50-136); ASPARTATE AMINOTRANSFERASE 28 U/L (15-37); BILIRUBIN,DIRECT < 0.1 mg/dL (0.0-0.2); BILIRUBIN,TOTAL 0.3 mg/dL (0.2-1.0); TOTAL PROTEIN, SERUM 6.4 g/dL (6.4-8.2)
[2021-03-17 21:09] LABS: THYROID STIMULATING HORMONE 3.545 mIU/mL (0.358-3.740)
[2021-03-17 21:18] LABS: MAGNESIUM 2.3 mg/dL (1.8-2.4)
[2021-03-17 21:19] LABS: ACETAMINOPHEN < 2.0 ug/mL (10-30)
[2021-03-17 21:31] LABS: ETHANOL < 3 MG/DL (0-0)
[2021-03-17 21:31] LABS: *BILIRUBIN,URIN NEGATIVE (NEGATIVE); *BLOOD, URINE TRACE (NEGATIVE); *COLOR,URINE YELLOW (YELLOW); *KETONES,URINE TRACE (NEGATIVE); *UROBILINOGEN,URINE 0.2 E.U./dl (NORMAL); NITRITE, URINE NEGATIVE (NEGATIVE); UGLUCOSE TRACE (NEGATIVE)
[2021-03-17 21:34] LABS: *CLARITY,URINE SLIGHTLY HAZY (CLEAR); LEUKOCYTE ESTERASE ,URINE TRACE (NEGATIVE)
[2021-03-17 21:35] LABS: BACTERIA,URINE FEW /HPF (NONE SEEN); SQUAMOUS EPITHELIAL CELL,UR FEW /HPF (NONE SEEN)
[2021-03-17 21:40] LABS: *AMPHETAMINE, URINE NEGATIVE (NEGATIVE); *CANNABINOID, URINE NEGATIVE (NEGATIVE); *COCCAINE, URINE NEGATIVE (NEGATIVE); *OPIATE, URINE NEGATIVE (NEGATIVE); *PHENCYCLIDINE SCREEN,URINE NEGATIVE (NEGATIVE)
--- NOTE | 2021-03-17 22:04 | NUR ---
Patient is medically cleared by Dr. Batista. Paged PET team for eval. left message for May BENDER.
--- NOTE | 2021-03-17 23:20 | NUR ---
Patient being evaluated by Sandra (PET Team).
--- NOTE | 2021-03-18 00:26 | NUR ---
Pt. admitted to MHU, under care of Dr. Andrade/Kenneth Belongs List completed. MRSA swab done.
[2021-03-18] MEDS ORDERED: LORAZEPAM 1 MG TABLET PO PRN (03:30)
[2021-03-18] MEDS ORDERED: ACETAMINOPHEN 325 MG TABLET PO PRN (03:30)
[2021-03-18] MEDS ORDERED: TEMAZEPAM 7.5 MG CAPSULE PO PRN (03:30)
[2021-03-18] MEDS ORDERED: MAGNESIUM HYDROXIDE 30 ML LIQUID UDC PO PRN (03:30)
[2021-03-18] MEDS ORDERED: BLOOD SUGAR DIAGNOSTIC 1 EACH STRIP VI ONE (03:30)
[2021-03-18] MEDS ORDERED: MAG HYDROX/AL HYDROX/SIMETH 30 ML LIQUID UDC PO PRN (03:30)
[2021-03-18 05:48] VITALS: BP 157/68
--- NOTE | 2021-03-18 06:30 | NUR ---
Admit Note: Patient is a 66 yr old male admitted on a 5150 for Grave Disability. Patient transferred to [facility] after [facility] treated him for a urine tract infection. Patient is originally from [facility] where according to the hold patient was agitated and confused. Patient arrived to the unit via gurney with medication packs to be sent to pharmacy. Dr. Andrade and Dr. Cooper aware. Patient's Rights provided. Care of plan in place as well as well as safety precautions.
[2021-03-18 07:30] VITALS: BP 95/59
[2021-03-18] MEDS: NICOTINE 21 MG/24HR PATCH TD SCH (08:46)
--- NOTE | 2021-03-18 09:00 | NUR ---
Received report from shift production supervisor RN. pt is a/o x 1, confused, talks to self. pt is ambulatory w/ unsteady gait. Pt is cooperative with care and medications, he is participating in group/individual therapy. will continue to monitor.
[2021-03-18 10:46] LABS: BILIRUBIN,TOTAL 0.3 mg/dL (0.2-1.0); CREATININE 1.1 mg/dL (0.6-1.3); TOTAL PROTEIN, SERUM 6.4 g/dL (6.4-8.2)
--- NOTE | 2021-03-18 11:42 | NUR ---
SW SNF Contact: SW contacted [facility] [address], [place] [address] ([phone]) and spoke with Oly who stated most likely patient will return however will confirm with net coordinator and contact this SW back.
--- NOTE | 2021-03-18 11:42 | NUR ---
AJAY Initial Discharge Plan: Patient currently resides at [facility] [address] [place] [address] ([phone]). SW contacted [facility] and spoke with Oly who stated most likely patient will return however will confirm with music coordinator and contact this SW back. AJAY will continue to work with patient, family, and MD to ensure a safe and proper discharge plan.
--- NOTE | 2021-03-18 12:35 | NUR ---
Firearms Report: Attendant Lodging Facilities completed and submitted a DOJ firearms report for 5150 grave disability certifications. A copy of report has been placed in patient chart.
--- NOTE | 2021-03-18 12:57 | NUR ---
Treatment Plan: Patient unable to sign treatment plan due to disorganized thought process.
[2021-03-18] MEDS: CEphaleXIN 250 MG CAPSULE PO SCH ×2 (14:26→21:12)
[2021-03-18] MEDS: DIVALPROEX 500 MG TABLET.DR PO SCH ×2 (14:26→20:49)
--- NOTE | 2021-03-18 14:47 | NUR ---
GPS:A received a phone call from [facility] and asking to send a message to Dr. Andrade to call Psychiatrist Dr. Quintanilla @ [phone]
--- NOTE | 2021-03-18 15:57 | NUR ---
Brief Substance Abuse Intervention: Patient was provided with a brief substance abuse intervention for smoking cigarettes and referred to the following substance abuse programs: [facility] Substance Abuse Self-helpline ([phone]); [facility] [address] [place] [address] ([phone]); [facility] [address] [facility] [address] ([phone]); [facility] ([phone]); [facility] ([phone]); [facility] ([phone]); [facility] ([phone]).
[2021-03-18 16:00] VITALS: BP 130/73
[2021-03-18] MEDS: ASPIRIN 81 MG TAB.CHEW PO SCH (17:24)
--- NOTE | 2021-03-18 20:00 | NUR ---
RECEIVED PATIENT IN THE DAYROOM WATCHING TV. HE IS NOTED A.O X 2. HE IS NOTED TANGENTAL, DISORGANIZED SPEECH AND HYPERVERBAL. PATIENT WAS REASSURED FOR HIS SAFETY. SAFETY AND FALL PRECAUTION IN PLACE. HE IS REASSURED FOR HIS SAFETY. PATIENT WAS GIVEN PO FLUIDS AND SNACKS. V/S STABLE. SAFETY AND FALL PRECAUTION IN PLACE. WILL CONTINUE TO MONITOR.
[2021-03-18] MEDS: CLOZAPINE 100 MG TABLET PO SCH (20:48)
[2021-03-18 22:18] VITALS: BP 152/73
[2021-03-19] MEDS: CEphaleXIN 250 MG CAPSULE PO SCH ×3 (06:54→21:12)
[2021-03-19 07:30] VITALS: BP 128/61
[2021-03-19] MEDS: ASPIRIN 81 MG TAB.CHEW PO SCH (08:55)
[2021-03-19] MEDS: DIVALPROEX 500 MG TABLET.DR PO SCH ×3 (08:55→16:47)
[2021-03-19] MEDS: NICOTINE 21 MG/24HR PATCH TD SCH (08:55)
[2021-03-19] MEDS: METFORMIN HCL 500 MG TABLET PO SCH (17:06)
[2021-03-19 17:14] VITALS: BP 154/81
[2021-03-19 20:04] VITALS: BP 156/78
[2021-03-19] MEDS: ATORVASTATIN 40 MG TABLET PO SCH (21:12)
[2021-03-19] MEDS: CLOZAPINE 100 MG TABLET PO SCH (21:14)
--- NOTE | 2021-03-19 22:00 | NUR ---
received to care, watching tv, and drawing. talks incoherently, with garbled speech. no interactions with peers. compliant with medications. snack given. assisted to williams chair for safety, after taking meditations because his gait became unsteady. monitored closely for safety. still watching tv, and drawing.
--- NOTE | 2021-03-19 23:15 | NUR ---
assisted to the bathroom, and bed. urinal is at bedside, bed alarm armed for safety.
--- NOTE | 2021-03-19 23:30 | NUR ---
appears to be asleep. no distress noted.
--- NOTE | 2021-03-20 06:00 | NUR ---
lept 5 hours. no distress noted.
[2021-03-20] MEDS: CEphaleXIN 250 MG CAPSULE PO SCH ×3 (06:07→21:27)
[2021-03-20 07:30] VITALS: BP 154/78
[2021-03-20] MEDS: ASPIRIN 81 MG TAB.CHEW PO SCH (08:24)
[2021-03-20] MEDS: METFORMIN HCL 500 MG TABLET PO SCH ×2 (08:24→16:56)
[2021-03-20] MEDS: DIVALPROEX 500 MG TABLET.DR PO SCH ×3 (08:24→16:56)
[2021-03-20] MEDS: NICOTINE 21 MG/24HR PATCH TD SCH (08:42)
[2021-03-20 16:46] VITALS: BP 161/88
[2021-03-20 20:21] VITALS: BP 141/82
[2021-03-20] MEDS: ATORVASTATIN 40 MG TABLET PO SCH (21:21)
[2021-03-20] MEDS: CLOZAPINE 100 MG TABLET PO SCH (21:22)
--- NOTE | 2021-03-21 04:42 | NUR ---
Received the patient earlier in the shift, paranoid and guarded. Patient did take his medications but with great hesitancy. This jingle writer was unable to engage in any meaningful conversation with the patient d/t patients confused and nonsensical verbiage. Warp Drawer continues to monitor patient for safety, behavioral issues and medication compliance.
[2021-03-21] MEDS: CEphaleXIN 250 MG CAPSULE PO SCH ×3 (05:58→20:34)
[2021-03-21 08:42] VITALS: BP 150/78
[2021-03-21] MEDS: ASPIRIN 81 MG TAB.CHEW PO SCH (08:56)
[2021-03-21] MEDS: NICOTINE 21 MG/24HR PATCH TD SCH (08:56)
[2021-03-21] MEDS: METFORMIN HCL 500 MG TABLET PO SCH ×2 (08:56→17:00)
[2021-03-21] MEDS: DIVALPROEX 500 MG TABLET.DR PO SCH ×3 (08:56→17:00)
[2021-03-21 16:51] VITALS: BP 150/90
[2021-03-21 20:00] VITALS: BP 157/80
[2021-03-21] MEDS: CLOZAPINE 100 MG TABLET PO SCH (20:33)
[2021-03-21] MEDS: ATORVASTATIN 40 MG TABLET PO SCH (20:34)
[2021-03-22] MEDS: CEphaleXIN 250 MG CAPSULE PO SCH ×3 (06:21→21:19)
--- NOTE | 2021-03-22 06:44 | NUR ---
Patient with auditory hallucinations . Not aggressive and easy to redirect. The patient has been compliant with all medications. Total hours of sleep were 6.15. Monitoring for safety, no issues at this time.
[2021-03-22 08:26] VITALS: BP 164/99
[2021-03-22] MEDS: NICOTINE 21 MG/24HR PATCH TD SCH (08:28)
[2021-03-22] MEDS: ASPIRIN 81 MG TAB.CHEW PO SCH (08:28)
[2021-03-22] MEDS: DIVALPROEX 500 MG TABLET.DR PO SCH ×3 (08:28→16:25)
[2021-03-22] MEDS: METFORMIN HCL 500 MG TABLET PO SCH ×2 (08:28→17:22)
--- NOTE | 2021-03-22 13:57 | NUR ---
GPS: Nursing Notes: Thought Disorder: Patient is awake and responding to his name, minimal participation in therapeutic groups, disoriented to time and situation, gets easily irritable when redirected, episodes of talking incoherently, when asking him questions give short answers, but sometimes made no sense, internally preoccupied, mumbling at times, angry affect, labile, unpredictable behavior, gets easily irritable when redirected, continue to monitor for safety, unable to formulate a viable plan for self care, continue with treatment plan.
[2021-03-22 15:27] VITALS: BP 136/74
[2021-03-22 20:12] VITALS: BP 118/72
[2021-03-22] MEDS: ATORVASTATIN 40 MG TABLET PO SCH (21:15)
[2021-03-22] MEDS: CLOZAPINE 100 MG TABLET PO SCH (21:15)
--- NOTE | 2021-03-22 23:45 | NUR ---
received to care, watching television, drawing on a piece of paper, and talking to himself. compliant with medications. he appeared to have an unsteady gait, after taking them. he was then placed in the williams chair, for safety, mostly drawing, and occasionally watching tv. he was given food and fluids. offered to be taken to the bathroom several times, but he declined, each time. the last time, he stated he was urinating as we talked. he was taken to the bathroom, and assisted with getting cv\leaned up, and changed. he was offered a diaper, but refused. he was assisted to bed, with the urinal in reach. he went to sleep, right after being placed in bed. no distress noted. will continue to monitor closely.
--- NOTE | 2021-03-23 06:00 | NUR ---
slept 5.5 hours, total.
[2021-03-23] MEDS: CEphaleXIN 250 MG CAPSULE PO SCH (06:15)
[2021-03-23 08:06] VITALS: BP 147/69
[2021-03-23] MEDS: ASPIRIN 81 MG TAB.CHEW PO SCH (08:28)
[2021-03-23] MEDS: DIVALPROEX 500 MG TABLET.DR PO SCH ×3 (08:28→17:22)
[2021-03-23] MEDS: METFORMIN HCL 500 MG TABLET PO SCH ×2 (08:28→17:23)
[2021-03-23] MEDS: NICOTINE 21 MG/24HR PATCH TD SCH (08:29)
[2021-03-23] MEDS ORDERED: TAMSULOSIN HCL 0.4 MG CAP.SR.24H PO SCH (12:30)
[2021-03-23] MEDS: FLUTICASONE/VILANTEROL 1 EACH BLST.W.DEV IH SCH (12:49)
--- NOTE | 2021-03-23 12:55 | NUR ---
AJAY PC Hearing: Patient had 5250 probable cause hearing today and it was upheld for grave disability.
--- NOTE | 2021-03-23 15:52 | NUR ---
GPS: Nursing Notes: Patient when down on his Knees: Patient is awake and responding to his name, trying to pickers material handlers his Grahams crackers that he dropped, went down on his knees because of his weight went all the way on both knees and he was unable to stand up on his own, stated "I am fine.. I am not in pain... I went down fast on my left knee.. But I am fine..", charge nurse called Radha Terrell NP, ordered, x-ray on both knees, V/S: 149/65, 103, 20, 0/10, 98%, continue to monitor for safety, continue with treatment plan.
[2021-03-23 16:19] VITALS: BP 127/75
[2021-03-23 20:00] VITALS: BP 161/76
[2021-03-23] MEDS: CLOZAPINE 100 MG TABLET PO SCH (21:34)
[2021-03-23] MEDS: ATORVASTATIN 40 MG TABLET PO SCH (21:34)
[2021-03-23] MEDS: SENNOSIDES/DOCUSATE SODIUM TABLET PO SCH (21:35)
--- NOTE | 2021-03-24 | NUR ---
received to care up un williams chair talking to self, hyperverbal, but pleasant when approached. compliant with medications and staff direction[place] [address]. as of now, he appears to be asleep. no distress noted. no distress noted.
--- NOTE | 2021-03-24 06:30 | NUR ---
slept 6 hours total. assisted with to the bathroom. hed a bowel movement, then went back to sleep.
[2021-03-24 07:30] VITALS: BP 148/78
[2021-03-24] MEDS: NICOTINE 21 MG/24HR PATCH TD SCH (08:21)
[2021-03-24] MEDS: METFORMIN HCL 500 MG TABLET PO SCH ×2 (08:21→17:15)
[2021-03-24] MEDS: ASPIRIN 81 MG TAB.CHEW PO SCH (08:21)
[2021-03-24] MEDS: FLUTICASONE/VILANTEROL 1 EACH BLST.W.DEV IH SCH (08:21)
[2021-03-24] MEDS: DIVALPROEX 500 MG TABLET.DR PO SCH ×3 (08:22→17:15)
--- NOTE | 2021-03-24 10:27 | NUR ---
AJAY Family Contact: AJAY received a voicemail from patient's sister Sade ([phone]). SW called back and left a voicemail for a return call.
--- NOTE | 2021-03-24 10:29 | NUR ---
AJAY Auto Body Repair TechnicianPlatform Consultant: AJAY spoke with patient's director of casework Peyton from [facility] ([phone]) and discussed patient's treatment and discharge plan.
--- NOTE | 2021-03-24 10:48 | NUR ---
AJAY Cap Coverer Contact: AJAY spoke with patient's route process administrator at his residential care facility Alexandrea ([phone]) and discussed treatment and discharge plan. Alexandrea also wanted to speak with Alexy and this AJAY transferred the phone.
[2021-03-24] MEDS: AMLODIPINE 10 MG TABLET PO SCH (12:16)
[2021-03-24 15:18] VITALS: BP 167/78
[2021-03-24 20:06] VITALS: BP 148/79
[2021-03-24] MEDS: TAMSULOSIN HCL 0.4 MG CAP.SR.24H PO SCH (20:40)
[2021-03-24] MEDS: ATORVASTATIN 40 MG TABLET PO SCH (20:40)
[2021-03-24] MEDS: CLOZAPINE 100 MG TABLET PO SCH (20:41)
[2021-03-24] MEDS: CLOZAPINE 25 MG TABLET PO SCH (20:41)
[2021-03-24] MEDS: SENNOSIDES/DOCUSATE SODIUM TABLET PO SCH (20:41)
[2021-03-24] MEDS ORDERED: CLOZAPINE 100 MG TABLET PO SCH (21:00)
--- NOTE | 2021-03-24 23:00 | NUR ---
received to care, watching tv, talking to self, pleasant upon approach.compliant with medications. assisted to williams chair for safety, after taking his medications, and becoming unsteady. he was assisted to bed around 2200. as of now, he appears to be asleep. no distress noted.
--- NOTE | 2021-03-25 03:16 | NUR ---
BROKEN DENTURES NOTE; around 2229, patient told this senior grant writer that he broke his lower dentures, which were lying on the floor, in 2 pieces. he stated that he thought that the bedside table was next to his bed, and he accidentally dropped them on the floor. upper dentures were intact on bedside table. lower dentures were placed in a bag, labeled, and stapled to belongings inventory, in chart. his upper dentures were brushed, and placed in his denture cup, at bedside.
--- NOTE | 2021-03-25 06:00 | NUR ---
slept 5.25 hours. continues to sleep. no distress noted.
[2021-03-25 07:30] VITALS: BP 154/82
[2021-03-25] MEDS: ASPIRIN 81 MG TAB.CHEW PO SCH (08:48)
[2021-03-25] MEDS: AMLODIPINE 10 MG TABLET PO SCH (08:48)
[2021-03-25] MEDS: DIVALPROEX 500 MG TABLET.DR PO SCH ×3 (08:48→17:07)
[2021-03-25] MEDS: NICOTINE 21 MG/24HR PATCH TD SCH (08:48)
[2021-03-25] MEDS: METFORMIN HCL 500 MG TABLET PO SCH ×2 (08:51→17:07)
[2021-03-25] MEDS: FLUTICASONE/VILANTEROL 1 EACH BLST.W.DEV IH SCH (09:00)
--- NOTE | 2021-03-25 09:00 | NUR ---
pt is calm and cooperative, no signs of acute distress, compliant with care and medications. will continue to monitor.
[2021-03-25 16:00] VITALS: BP 151/76
[2021-03-25] MEDS: TAMSULOSIN HCL 0.4 MG CAP.SR.24H PO SCH (21:01)
[2021-03-25] MEDS: SENNOSIDES/DOCUSATE SODIUM TABLET PO SCH (21:01)
[2021-03-25] MEDS: ATORVASTATIN 40 MG TABLET PO SCH (21:02)
[2021-03-25] MEDS: CLOZAPINE 100 MG TABLET PO SCH (21:02)
[2021-03-25] MEDS: CLOZAPINE 25 MG TABLET PO SCH (21:03)
[2021-03-25 21:24] VITALS: BP 134/74
[2021-03-26 07:19] LABS: MEAN CORPUSCULAR HEMOGLOBIN 28.4 uug (23.8-33.4); MEAN CORPUSCULAR VOLUME 83.5 fL (73.0-96.2); PLATELET COUNT (AUTO) 195 K/uL (152-348)
[2021-03-26 07:30] VITALS: BP 137/72
[2021-03-26] MEDS: METFORMIN HCL 500 MG TABLET PO SCH ×2 (08:45→18:10)
[2021-03-26] MEDS: AMLODIPINE 10 MG TABLET PO SCH (08:46)
[2021-03-26] MEDS: ASPIRIN 81 MG TAB.CHEW PO SCH (08:46)
[2021-03-26] MEDS: DIVALPROEX 500 MG TABLET.DR PO SCH ×3 (08:46→18:10)
[2021-03-26] MEDS: NICOTINE 21 MG/24HR PATCH TD SCH (08:47)
[2021-03-26] MEDS: FLUTICASONE/VILANTEROL 1 EACH BLST.W.DEV IH SCH (08:54)
--- NOTE | 2021-03-26 14:15 | NUR ---
GPS: Pt will be discharge tomorrow and MD ordered covid test.
[2021-03-26 14:43] LABS: HEMATOCRIT 36.3 % (36.7-47.1); MEAN CORPUSCULAR HEMOGLOBIN 28.6 uug (23.8-33.4); MEAN CORPUSCULAR VOLUME 83.7 fL (73.0-96.2); PLATELET COUNT (AUTO) 218 K/uL (152-348)
[2021-03-26 15:00] LABS: CREATININE 0.8 mg/dL (0.6-1.3); POTASSIUM 3.8 mmol/L (3.5-5.1)
[2021-03-26 16:00] VITALS: BP 112/74
--- NOTE | 2021-03-26 16:08 | NUR ---
Gps/Strawberry Grower- Discharge planning for tomorrow, will be picked up by the facility at 0800 (03/27/21) Patient was well informed.. Patient was swab for Covid 19 .
[2021-03-26] MEDS: CLOZAPINE 100 MG TABLET PO SCH (20:17)
[2021-03-26] MEDS: SENNOSIDES/DOCUSATE SODIUM TABLET PO SCH (20:17)
[2021-03-26] MEDS: ATORVASTATIN 40 MG TABLET PO SCH (20:17)
[2021-03-26] MEDS: TAMSULOSIN HCL 0.4 MG CAP.SR.24H PO SCH (20:17)
[2021-03-26] MEDS: CLOZAPINE 25 MG TABLET PO SCH (20:18)
[2021-03-26 20:24] VITALS: BP 136/78
--- NOTE | 2021-03-26 21:56 | NUR ---
GPS: Pt.now resting in bed. All due meds.given earlier and eric.well. Remains confused,disorganized and hyper-verbal. Fall precautions observed. No aggressive behavior noted. Re-directed prn.
[2021-03-27 07:50] LABS: HEMATOCRIT 36.5 % (36.7-47.1); MEAN CORPUSCULAR HEMOGLOBIN 28.7 uug (23.8-33.4); PLATELET COUNT (AUTO) 213 K/uL (152-348)
--- NOTE | 2021-03-27 08:05 | NUR ---
SW Discharge Note: Patient will be discharged to a intermediate facility to [facility] [address] [place] [address] ([phone]) via facility transportation at 8AM. Concrete Mixer spoke with May at [facility] ([phone]), who is aware that patient will be returning to facility today. Patient is alert and oriented x3 and is not able to plan for self-care at this time but is willing to accept care provided for him at the facility. Patient denies any suicidal or homicidal ideation. Patient is aware and agreeable with discharge plans. Patient will continue to follow-up with his Psychiatrist Dr. Mcdaniel and Test Specialist Dr. Greco at the facility. Patient presents with euthymic mood and congruent affect.
--- NOTE | 2021-03-27 08:15 | NUR ---
Gps/Investigation Clerk Report was given to Jade BENDER, All belongings/valuables, (watch broken dentures, pt,s. own meds .) given back to patient. [place] , milk , juice provided for the patient. Discharged to [facility] ([facility] via facility Van . report was given to Jade BENDER . Patient was discharged in good spirit with no complaints noted. No S.I./ no H.I.
--- NOTE | 2021-03-27 11:02 | NUR ---
Gps/Facility Rehab Director- While Housekeeping clearing pt. room after dc'd noted by RON upper denture in a denture cup w/ his name , noted not listed in his belongings list(Valuables)
== END 2021-03-27 08:10 | DRG 885 ==
LOC: ER 18:24 → GPS 23:55
PROVIDERS: ADMIT Psychiatry & Neurology Psychiatry; ATTEND Nurse Practitioner Acute Care
DX: F25.9 Schizoaffective disorder, unspecified (principal); E11.65 Type 2 diabetes mellitus with hyperglycemia; E44.1 Mild protein-calorie malnutrition; N39.0 Urinary tract infection, site not specified; D68.69 Other thrombophilia; E87.1 Hypo-osmolality and hyponatremia; E78.5 Hyperlipidemia, unspecified; J44.9 Chronic obstructive pulmonary disease, unspecified; E86.0 Dehydration; F17.200 Nicotine dependence, unspecified, uncomplicated; N40.1 Benign prostatic hyperplasia with lower urinary tract symptoms; I10 Essential (primary) hypertension; Z71.6 Tobacco abuse counseling; D72.829 Elevated white blood cell count, unspecified; E88.09 Other disorders of plasma-protein metabolism, not elsewhere classified; Z68.32 Body mass index [BMI] 32.0-32.9, adult; E66.01 Morbid (severe) obesity due to excess calories; Z79.84 Long term (current) use of oral hypoglycemic drugs; Z20.822 Contact with and (suspected) exposure to COVID-19
CPT/HCPCS: 36415; 70030-TC; 71045; 73560; 80164; 83735; 84100; 84443; 85025; 87086; 93005; 97161; A4663; G0480

== ENCOUNTER 2021-06-30 11:00 | Inpatient (IN) | payer MEDICARE, OTHER ==
[~2021-06-30] VITALS: Ht 182.9 cm; Wt 111.1 kg
[~2021-06-30 11:00] MED LIST changes: +ACET-2154 PO; -AMLO10TA4 PO; +AMLO10TA59 PO; -ARIP20TA4 PO; +BISA10SU61 RC; -BUDE10.2 IH; -CHOL10002 PO; -DIVA-78 PO; +FLUT1BLS IH; +MAGN400O6 PO; -METF-495 PO; -MULT-594 PO; +NA P133E RC; +POLY17PO4 PO; +SENN-22 PO; -SIMV-46 PO; -SITA100T PO; -[UNRECOGNIZED DRUG - CODE] MC; -[UNRECOGNIZED DRUG - CODE] PO; -[UNRECOGNIZED DRUG - CODE] PO
[2021-06-30 11:57] LABS: HEMATOCRIT 40.6 % (36.7-47.1); MEAN CORPUSCULAR HEMOGLOBIN 28.4 uug (23.8-33.4); MEAN CORPUSCULAR VOLUME 81.6 fL (73.0-96.2); PLATELET COUNT (AUTO) 193 K/uL (152-348)
[2021-06-30 12:20] LABS: ALANINE AMINOTRANSFERASE 16 U/L (16-63); ALKALINE PHOSPHATASE 141 U/L (50-136); ASPARTATE AMINOTRANSFERASE 21 U/L (15-37); BILIRUBIN,DIRECT 0.1 mg/dL (0.0-0.2); BILIRUBIN,TOTAL 0.3 mg/dL (0.2-1.0); CARBON DIOXIDE 29 mmol/L (21-32); CREATINE KINASE, TOTAL 277 U/L (39-308); GLUCOSE 149 mg/dL (74-106); TOTAL PROTEIN, SERUM 8.2 g/dL (6.4-8.2); UREA NITROGEN, BLOOD 18 mg/dL (7-18)
[2021-06-30 12:24] LABS: ACETAMINOPHEN < 2.0 ug/mL (10-30)
[2021-06-30 12:27] LABS: ETHANOL < 3 MG/DL (0-0); THYROID STIMULATING HORMONE 3.327 mIU/mL (0.358-3.740)
[2021-06-30 12:35] LABS: *BILIRUBIN,URIN NEGATIVE (NEGATIVE); *BLOOD, URINE NEGATIVE (NEGATIVE); *CLARITY,URINE CLEAR (CLEAR); *COLOR,URINE YELLOW (YELLOW); *KETONES,URINE TRACE (NEGATIVE); *UROBILINOGEN,URINE 0.2 E.U./dl (NORMAL); LEUKOCYTE ESTERASE ,URINE NEGATIVE (NEGATIVE); NITRITE, URINE NEGATIVE (NEGATIVE); UGLUCOSE NEGATIVE (NEGATIVE)
[2021-06-30] MEDS ORDERED: CLOZ100T32 PO (12:35)
[2021-06-30] MEDS ORDERED: AMLO10TA59 PO (12:35)
[2021-06-30] MEDS ORDERED: BISA10SU61 RC (12:35)
[2021-06-30] MEDS ORDERED: FLUT1BLS IH (12:35)
[2021-06-30] MEDS ORDERED: METF-442 PO (12:35)
[2021-06-30] MEDS ORDERED: NA P133E RC (12:35)
[2021-06-30] MEDS ORDERED: ATOR20TA PO (12:35)
[2021-06-30] MEDS ORDERED: ACET-2154 PO (12:35)
[2021-06-30] MEDS ORDERED: DIVA500T2 PO (12:35)
[2021-06-30 12:36] LABS: CHLORIDE 94 mmol/L (98-107); POTASSIUM 3.5 mmol/L (3.5-5.1)
--- NOTE | 2021-06-30 12:45 | NUR ---
Pt resting in gurney and watching TV, NAD noted.
--- NOTE | 2021-06-30 12:50 | NUR ---
Per pt is medically clear for psych eval, spoke with Art who stated will be in to eval pt.
[2021-06-30] MEDS ORDERED: POLY119P2 PO (12:53)
[2021-06-30] MEDS ORDERED: POLY17PO4 PO (12:53)
[2021-06-30] MEDS ORDERED: TAMS-3 PO (12:53)
[2021-06-30] MEDS ORDERED: METO25TA6 PO (12:53)
[2021-06-30] MEDS ORDERED: MAGN400O6 PO (12:53)
[2021-06-30] MEDS ORDERED: LINA5TAB PO (12:53)
[2021-06-30] MEDS ORDERED: SENN-22 PO (12:53)
[2021-06-30] MEDS ORDERED: NAPR500T6 PO (12:53)
[2021-06-30] MEDS ORDERED: HYDR50TA4 PO (12:53)
[2021-06-30 12:58] LABS: *AMPHETAMINE, URINE NEGATIVE (NEGATIVE); *CANNABINOID, URINE NEGATIVE (NEGATIVE); *COCCAINE, URINE NEGATIVE (NEGATIVE); *OPIATE, URINE NEGATIVE (NEGATIVE); *PHENCYCLIDINE SCREEN,URINE NEGATIVE (NEGATIVE)
--- NOTE | 2021-06-30 13:30 | NUR ---
Pt eating lunch and watching TV, pending psych eval.
--- NOTE | 2021-06-30 13:55 | NUR ---
Pt placed on 5150 hold (GD) by Anoop.
--- NOTE | 2021-06-30 14:25 | NUR ---
SBAR report given to U floor via telephone.
[2021-06-30 14:30] VITALS: BP 133/60
--- NOTE | 2021-06-30 14:40 | NUR ---
Pt trans to MHU, NAD noted.
[2021-06-30] MEDS ORDERED: TEMAZEPAM 7.5 MG CAPSULE PO PRN (15:30)
[2021-06-30] MEDS ORDERED: MAG HYDROX/AL HYDROX/SIMETH 30 ML LIQUID UDC PO PRN (15:30)
[2021-06-30] MEDS ORDERED: LORAZEPAM 1 MG TABLET PO PRN (15:30)
[2021-06-30] MEDS ORDERED: MAGNESIUM HYDROXIDE 30 ML LIQUID UDC PO PRN (15:30)
[2021-06-30] MEDS ORDERED: ACETAMINOPHEN 325 MG TABLET PO PRN (15:30)
--- NOTE | 2021-06-30 17:21 | NUR ---
ADMISSION NOTE: Patient admitted to MHU room 141-B from the ER in a wheelchair accompanied by nursing staff. Patient oriented to the unit rules and policies. Patient's belongings and valuables inventoried with patient and placed in contraband locker. Patient skin assessment complete, skin is intact. Patient provided with patient's rights handbook and 5150 hold advisement. Upon [id number] evaluation, patient is wearing urine-soaked clothes, has a foul odor, appears disorganized, disoriented, and disheveled. Patient noted with tangential, disorganized, and flight of ideas thought process. Patient is unable to maintain a linear and logical conversation. Patient has rambling and incoherent speech. Patient is able to follow direction from staff but is uncooperative with admission process. Patient was escorted to shower by nursing staff for foul odor. Patient assisted to his assigned room after shower but he wants to watch tv, so he was assisted to day room.
[2021-06-30 20:08] VITALS: BP 133/81
--- NOTE | 2021-07-01 02:37 | NUR ---
GPS/NSG Patient was admitted, no HS medication ordered however prn for insomnia was offered, patient refused and remained awake most of shift. Unable to re-direct. Patient's -appearance poor, disheveled, unkempt. Patient requires constant re-direction. Safety precautions in place, patient watts a history of falls.
[2021-07-01 07:30] VITALS: BP 163/71
--- NOTE | 2021-07-01 10:30 | NUR ---
GPS: RECEIVED PT IN ACTIVITY ROOM AWAKE WATCHING TV. PT HAS PRESSURED SPEECH. COMPLIANT WITH MEDS. PT CONFUSED, IMPAIRED JUDGEMENT, POOR INSIGHT AND IMPULSE CONTROL. PT HAD NO SLEEP SINCE LAST NIGHT.
[2021-07-01 11:21] LABS: CREATININE 0.7 mg/dL (0.6-1.3)
--- NOTE | 2021-07-01 15:25 | NUR ---
AJAY Initial Discharge Note [facility] [address] [facility] [address] [phone]. Oly, director global sales ([phone]) contacted AJAY and stated that the pt is accepted back to the facility upon discharge. AJAY will contact [facility] and confirm once again with admissions upon discharge. AJAY will continue to work with pt, family and MD to ensure a safe and proper discharge plan.
--- NOTE | 2021-07-01 15:26 | NUR ---
Firearms Report: Brewery Representative completed and submitted a [employer] firearms report for 5150 grave disability certifications. A copy of report has been placed in patient chart.
[2021-07-01 16:00] VITALS: BP 155/92
[2021-07-01] MEDS: METFORMIN HCL 500 MG TABLET PO SCH (17:20)
[2021-07-01] MEDS: METOPROLOL TARTRATE 25 MG TABLET PO SCH (17:21)
[2021-07-01] MEDS: LINAGLIPTIN 5 MG TABLET PO SCH (17:26)
[2021-07-01] MEDS: AMLODIPINE 10 MG TABLET PO SCH (17:26)
[2021-07-01] MEDS: FLUTICASONE/VILANTEROL 1 EACH BLST.W.DEV IH SCH (17:46)
[2021-07-01] MEDS ORDERED: TAMSULOSIN HCL 0.4 MG CAP.SR.24H PO SCH (18:00)
--- NOTE | 2021-07-01 18:22 | NUR ---
GPS; PT DID NOT HAVE A SLEEP. STAYED AT THE ACTIVITY ROOM THE WHOLE TIME WATCHING TV. ANXIOUS AND AGITATED WHILE CHANGING DIAPER AND ASSISTING WITH TOILETING. COMPLIANT WITH MEDICATIONS. PT WITH POOR INSIGHT AND POOR IMPULSE CONTROL.
[2021-07-01 20:14] VITALS: BP 162/82
[2021-07-01] MEDS: SENNOSIDES/DOCUSATE SODIUM TABLET PO SCH (21:03)
[2021-07-01] MEDS: ATORVASTATIN 20 MG TABLET PO SCH (21:03)
[2021-07-01] MEDS: DIVALPROEX 500 MG TABLET.DR PO SCH (21:03)
[2021-07-01] MEDS: CLOZAPINE 100 MG TABLET PO SCH (21:04)
[2021-07-02 07:30] VITALS: BP 119/68
[2021-07-02] MEDS: METOPROLOL TARTRATE 25 MG TABLET PO SCH ×2 (08:41→17:00)
[2021-07-02] MEDS: METFORMIN HCL 500 MG TABLET PO SCH ×2 (08:41→18:19)
[2021-07-02] MEDS: LINAGLIPTIN 5 MG TABLET PO SCH (08:41)
[2021-07-02] MEDS: AMLODIPINE 10 MG TABLET PO SCH (08:41)
[2021-07-02] MEDS: DIVALPROEX 500 MG TABLET.DR PO SCH ×2 (08:41→21:31)
[2021-07-02] MEDS: FLUTICASONE/VILANTEROL 1 EACH BLST.W.DEV IH SCH (08:42)
[2021-07-02] MEDS: GLUCERNA SHAKE VANILLA 237 ML CAN PO SCH ×3 (10:15→17:00)
--- NOTE | 2021-07-02 11:18 | NUR ---
GPS: PT SEEN TODAY AND DENIES ANY PAIN OR DISCOMFORT. PT COOPERATIVE WITH CARE AND COMPLIANT WITH MEDICATIONS. GARBLED SPEECH NOTED AND DOES NOT MAKE SENSE. NO AGITATION NOTED AT THIS TIME.
[2021-07-02 16:00] VITALS: BP 102/72
[2021-07-02 20:00] VITALS: BP 112/81
[2021-07-02] MEDS: ATORVASTATIN 20 MG TABLET PO SCH (21:31)
[2021-07-02] MEDS: SENNOSIDES/DOCUSATE SODIUM TABLET PO SCH (21:31)
[2021-07-02] MEDS: CLOZAPINE 100 MG TABLET PO SCH (21:32)
[2021-07-02] MEDS: TAMSULOSIN HCL 0.4 MG CAP.SR.24H PO SCH (21:32)
[2021-07-03 07:30] VITALS: BP 121/70
[2021-07-03] MEDS: METFORMIN HCL 500 MG TABLET PO SCH ×2 (08:49→17:14)
[2021-07-03] MEDS: GLUCERNA SHAKE VANILLA 237 ML CAN PO SCH ×3 (08:50→17:14)
[2021-07-03] MEDS: METOPROLOL TARTRATE 25 MG TABLET PO SCH ×2 (08:50→17:14)
[2021-07-03] MEDS: LINAGLIPTIN 5 MG TABLET PO SCH (08:50)
[2021-07-03] MEDS: DIVALPROEX 500 MG TABLET.DR PO SCH ×2 (08:50→20:43)
[2021-07-03] MEDS: FLUTICASONE/VILANTEROL 1 EACH BLST.W.DEV IH SCH (08:50)
[2021-07-03] MEDS: AMLODIPINE 10 MG TABLET PO SCH (08:52)
--- NOTE | 2021-07-03 10:19 | NUR ---
GPD: PT RECEIEVED TODAY ON BED, ISOLATIVE. COMPLIANT WITH MEDS. PT WITH LOOSE OF ASSOCIATION, SAYING NON-SENSE AND RESPONDS WHEN ASKED BUT GETS OUT OF TOPIC. PT DENIES PAIN OR DISCOMFORT. GARBLED SPEECH NOTED.
--- NOTE | 2021-07-03 12:10 | NUR ---
AJAY Family Contact: AJAY contacted Pt's sister Jaqueline ([phone]) and discussed pt's current status and discharge information to [facility] where the pt is confirmed to return upon discharge date. Jaqueline was also aware of this location and agreeable with the discharge plan.
--- NOTE | 2021-07-03 15:56 | NUR ---
GPS: SPOKE WITH DINA, SISTER OF PT, ASKING RFOR PT CONDITION AND RE: MEDS PT TAKING. REQUESTED THAT SHE'S OKAY FOR AMBER TO CALL AND INQUIRE ABOUT PT CONDITION AND MEDS PT IS TAKING.
[2021-07-03 17:04] VITALS: BP 137/84
--- NOTE | 2021-07-03 18:03 | NUR ---
GPS: PT AT ACTIVITY ROOM ENJOYING WATCHING TV. COMPLIANT WITH MEDS. PT NO AGITATION NOTED. COOPERATIVE WITH CARE. DENIES PAIN OR DISCOMFORT.
[2021-07-03 20:00] VITALS: BP 132/78
--- NOTE | 2021-07-03 20:00 | NUR ---
RECEIVED PATIENT IN THE DAY ROOM WATCHING TV. HE IS NOTED A/O X 1. HE IS NOTED WITH FLIGHT OF IDEAS, TANGENTAL, DISORGANIZED THOUGHTS. HE IS A POOR HISTORIAN. IMPAIRED INSIGHT AND JUDGMENT IS NOTED TO THE REASON FOR HIS ADMISSION TO MHU. V/S STABLE. PATIENT WAS GIVEN PO FLUIDS AND SNACKS. HE IS REASSURED FOR HIS SAFETY. SAFETY AND FALL PRECAUTION IN PLACE. WILL CONTINUE TO MONITOR.
[2021-07-03] MEDS: TAMSULOSIN HCL 0.4 MG CAP.SR.24H PO SCH (20:43)
[2021-07-03] MEDS: CLOZAPINE 100 MG TABLET PO SCH (20:43)
[2021-07-03] MEDS: ATORVASTATIN 20 MG TABLET PO SCH (20:43)
[2021-07-03] MEDS: SENNOSIDES/DOCUSATE SODIUM TABLET PO SCH (20:44)
[2021-07-04 07:30] VITALS: BP 154/67
[2021-07-04] MEDS: LINAGLIPTIN 5 MG TABLET PO SCH (08:49)
[2021-07-04] MEDS: METFORMIN HCL 500 MG TABLET PO SCH ×2 (08:49→17:14)
[2021-07-04] MEDS: DIVALPROEX 500 MG TABLET.DR PO SCH ×2 (08:49→20:32)
[2021-07-04] MEDS: AMLODIPINE 10 MG TABLET PO SCH (08:50)
[2021-07-04] MEDS: METOPROLOL TARTRATE 25 MG TABLET PO SCH ×2 (08:51→17:14)
[2021-07-04] MEDS: FLUTICASONE/VILANTEROL 1 EACH BLST.W.DEV IH SCH (08:51)
[2021-07-04] MEDS: GLUCERNA SHAKE VANILLA 237 ML CAN PO SCH ×3 (08:55→17:14)
--- NOTE | 2021-07-04 17:43 | NUR ---
Gps/Brand Lead- Stayed in the dinning room during his dinner, had been compliant with routine meds., with min. prompting. Talking to self, speech incoherent
[2021-07-04 20:00] VITALS: BP 129/75
--- NOTE | 2021-07-04 20:00 | NUR ---
Received patient in the dayroom. he is noted A/O x 1 and 2. he is calm and pleasant upon approached. He is a poor historian, tangental. Impaired insight and judgment is noted as to the reason for his admission to MHU. he is reassured for her safety. safety and fall precaution in place. V/S stable. PO fluids and snacks were given. will continue to monitor.
[2021-07-04] MEDS: SENNOSIDES/DOCUSATE SODIUM TABLET PO SCH (20:32)
[2021-07-04] MEDS: TAMSULOSIN HCL 0.4 MG CAP.SR.24H PO SCH (20:32)
[2021-07-04] MEDS: ATORVASTATIN 20 MG TABLET PO SCH (20:32)
[2021-07-04] MEDS: CLOZAPINE 100 MG TABLET PO SCH (20:33)
[2021-07-05 07:46] VITALS: BP 148/82
[2021-07-05] MEDS: METFORMIN HCL 500 MG TABLET PO SCH ×2 (08:12→17:02)
[2021-07-05] MEDS: DIVALPROEX 500 MG TABLET.DR PO SCH ×2 (08:14→20:18)
[2021-07-05] MEDS: METOPROLOL TARTRATE 25 MG TABLET PO SCH ×2 (08:14→17:00)
[2021-07-05] MEDS: LINAGLIPTIN 5 MG TABLET PO SCH (08:14)
[2021-07-05] MEDS: AMLODIPINE 10 MG TABLET PO SCH (08:15)
[2021-07-05] MEDS: FLUTICASONE/VILANTEROL 1 EACH BLST.W.DEV IH SCH (08:16)
[2021-07-05] MEDS: GLUCERNA SHAKE VANILLA 237 ML CAN PO SCH ×3 (08:17→17:04)
--- NOTE | 2021-07-05 09:20 | NUR ---
Patient was assigned to me because he was accusing the previous assigned nurse of threatening him of lowering his Ativan dose, and not giving to him on the clock. Patient is demanding, attention seeker, accusatory towards staff, fixated on narcotics, manipulative. Patient ask to increase his Ativan dose and Restoril because they're not effective. Addendum: 07/05/21 at 1342 by KI IVEY RN Please disregard, wrong entry.
[2021-07-05 15:50] VITALS: BP 105/62
--- NOTE | 2021-07-05 15:54 | NUR ---
Patient is received awake in his room. A/O X 1 -2 to person, place. Pt. affect is withdrawn, flat, labile, disorganized. Compliant with medications. Ambulates without assistance. Incontinent at times. Reality orientation provided. Fall and safety precautions implemented.
[2021-07-05 20:14] VITALS: BP 146/75
[2021-07-05] MEDS: ATORVASTATIN 20 MG TABLET PO SCH (20:18)
[2021-07-05] MEDS: CLOZAPINE 100 MG TABLET PO SCH (20:18)
[2021-07-05] MEDS: SENNOSIDES/DOCUSATE SODIUM TABLET PO SCH (20:18)
[2021-07-05] MEDS: TAMSULOSIN HCL 0.4 MG CAP.SR.24H PO SCH (20:19)
--- NOTE | 2021-07-06 06:52 | NUR ---
Patient did not sleep last night. she was observed in the day room, refusing to go to bed, and refused Insomnia PO PRN medication. when attempted to redirect patient to his room he stated, i need to go to work. patient is hard to redirect. he is now sleeping in his bed. will continue to monitor.
[2021-07-06 07:46] VITALS: BP 126/65
[2021-07-06] MEDS: LINAGLIPTIN 5 MG TABLET PO SCH (08:23)
[2021-07-06] MEDS: AMLODIPINE 10 MG TABLET PO SCH (08:23)
[2021-07-06] MEDS: METFORMIN HCL 500 MG TABLET PO SCH ×2 (08:25→17:00)
[2021-07-06] MEDS: DIVALPROEX 500 MG TABLET.DR PO SCH ×2 (08:26→21:00)
[2021-07-06] MEDS: METOPROLOL TARTRATE 25 MG TABLET PO SCH ×2 (08:26→17:00)
[2021-07-06] MEDS: FLUTICASONE/VILANTEROL 1 EACH BLST.W.DEV IH SCH (08:27)
[2021-07-06] MEDS: GLUCERNA SHAKE VANILLA 237 ML CAN PO SCH ×3 (08:27→17:01)
[2021-07-06 15:46] VITALS: BP 109/66
--- NOTE | 2021-07-06 16:10 | NUR ---
Received patient sleeping in his room. A/O X 2 to person, place. Pt. affect is withdrawn, flat, isolative. Ambulates without assistance. Compliant with medications. Pt. is encourage to vent feelings and emotions. Fall and safety precautions implemented.
[2021-07-06 20:00] VITALS: BP 132/68
[2021-07-06] MEDS: TAMSULOSIN HCL 0.4 MG CAP.SR.24H PO SCH (21:00)
[2021-07-06] MEDS: ATORVASTATIN 20 MG TABLET PO SCH (21:00)
[2021-07-06] MEDS: CLOZAPINE 100 MG TABLET PO SCH (21:00)
[2021-07-06] MEDS: SENNOSIDES/DOCUSATE SODIUM TABLET PO SCH (21:00)
--- NOTE | 2021-07-06 22:00 | NUR ---
Pt refused his routine night time medication but pt took Ativan prn at 2114h for anxiety and Tylenol 650 mg at 2114H. Pt in no acute distress. Will continue to monitor.
--- NOTE | 2021-07-07 06:10 | NUR ---
Pt in no acute distress. Prescribed medication given and pt tolerated it well. Safety and comfort provided. All needs are met. Pt stable. Will endorse to incoming nurse for continuity of care.
[2021-07-07 07:46] LABS: HEMATOCRIT 36.2 % (36.7-47.1); MEAN CORPUSCULAR HEMOGLOBIN 27.4 uug (23.8-33.4); MEAN CORPUSCULAR VOLUME 81.9 fL (73.0-96.2); PLATELET COUNT (AUTO) 219 K/uL (152-348)
[2021-07-07] MEDS: DIVALPROEX 500 MG TABLET.DR PO SCH ×2 (09:00→20:56)
[2021-07-07] MEDS: FLUTICASONE/VILANTEROL 1 EACH BLST.W.DEV IH SCH (09:00)
[2021-07-07] MEDS: METOPROLOL TARTRATE 25 MG TABLET PO SCH ×2 (09:00→18:21)
[2021-07-07] MEDS: LINAGLIPTIN 5 MG TABLET PO SCH (09:00)
[2021-07-07] MEDS: AMLODIPINE 10 MG TABLET PO SCH (09:00)
[2021-07-07] MEDS: GLUCERNA SHAKE VANILLA 237 ML CAN PO SCH ×3 (09:00→17:00)
[2021-07-07] MEDS: METFORMIN HCL 500 MG TABLET PO SCH ×2 (11:14→18:20)
--- NOTE | 2021-07-07 19:20 | NUR ---
Recd patient with head covered with sheet and responded with disorganized response in and out ot clear mentation. Pt is med compliant and oral intake qs. Spent moswt of afternoon in dayroom drawing no peer interaction noted minimal interaction noted.Still with pressured speech . No outbursts noted this shift. Continue to monitor for safety.
[2021-07-07 20:01] VITALS: BP 128/75
[2021-07-07] MEDS: ATORVASTATIN 20 MG TABLET PO SCH (20:56)
[2021-07-07] MEDS: TAMSULOSIN HCL 0.4 MG CAP.SR.24H PO SCH (20:56)
[2021-07-07] MEDS: SENNOSIDES/DOCUSATE SODIUM TABLET PO SCH (20:56)
[2021-07-07] MEDS: CLOZAPINE 100 MG TABLET PO SCH (20:57)
[2021-07-08 07:30] VITALS: BP_SYST 117; BP_SYST 151; BP_DIAS 63; BP_DIAS 75
--- NOTE | 2021-07-08 07:30 | NUR ---
rec;d patient awke with no c/o any thing insight poor and likes to draw in day room , isolative with peers still dishoveled, oral intake qs no s/s of hypo or hyperglycemia. Flat affect, Valporic Acid is 53 PA aware. pts status is 5250 as of today. Continue to monitor for safety.
[2021-07-08] MEDS: GLUCERNA SHAKE VANILLA 237 ML CAN PO SCH ×3 (09:00→17:32)
[2021-07-08] MEDS: METFORMIN HCL 500 MG TABLET PO SCH ×2 (10:25→17:15)
[2021-07-08] MEDS: AMLODIPINE 10 MG TABLET PO SCH (10:25)
[2021-07-08] MEDS: METOPROLOL TARTRATE 25 MG TABLET PO SCH ×2 (10:26→17:00)
[2021-07-08] MEDS: DIVALPROEX 500 MG TABLET.DR PO SCH ×3 (10:26→20:21)
[2021-07-08] MEDS: LINAGLIPTIN 5 MG TABLET PO SCH (10:26)
[2021-07-08] MEDS: FLUTICASONE/VILANTEROL 1 EACH BLST.W.DEV IH SCH (10:27)
[2021-07-08 20:00] VITALS: BP 142/68
[2021-07-08] MEDS: TAMSULOSIN HCL 0.4 MG CAP.SR.24H PO SCH (20:22)
[2021-07-08] MEDS: CLOZAPINE 100 MG TABLET PO SCH (20:22)
[2021-07-08] MEDS: ATORVASTATIN 20 MG TABLET PO SCH (20:22)
[2021-07-08] MEDS: SENNOSIDES/DOCUSATE SODIUM TABLET PO SCH (20:26)
[2021-07-09 07:30] VITALS: BP 95/65
[2021-07-09] MEDS: METOPROLOL TARTRATE 25 MG TABLET PO SCH ×2 (09:00→18:02)
[2021-07-09] MEDS: FLUTICASONE/VILANTEROL 1 EACH BLST.W.DEV IH SCH (09:00)
[2021-07-09] MEDS: AMLODIPINE 10 MG TABLET PO SCH (09:00)
[2021-07-09] MEDS: LINAGLIPTIN 5 MG TABLET PO SCH (09:25)
[2021-07-09] MEDS: METFORMIN HCL 500 MG TABLET PO SCH ×2 (09:26→18:00)
[2021-07-09] MEDS: DIVALPROEX 500 MG TABLET.DR PO SCH ×3 (09:26→20:48)
[2021-07-09] MEDS: GLUCERNA SHAKE VANILLA 237 ML CAN PO SCH ×3 (09:30→17:00)
[2021-07-09 16:37] VITALS: BP 119/103
[2021-07-09 20:00] VITALS: BP 130/73
--- NOTE | 2021-07-09 20:30 | NUR ---
received patient in the day room. he is noted sitting in a chair watching TV. he is observed talking to himself. patient is cooperative with plan of care. v/s stable. he is reassured for his safety. safety and fall precaution in place. pt was given PO Fluids and snacks. will continue to monitor.
[2021-07-09] MEDS: SENNOSIDES/DOCUSATE SODIUM TABLET PO SCH (20:47)
[2021-07-09] MEDS: CLOZAPINE 100 MG TABLET PO SCH (20:47)
[2021-07-09] MEDS: TAMSULOSIN HCL 0.4 MG CAP.SR.24H PO SCH (20:47)
[2021-07-09] MEDS: ATORVASTATIN 20 MG TABLET PO SCH (20:47)
[2021-07-10 07:30] VITALS: BP 149/68
[2021-07-10] MEDS: LINAGLIPTIN 5 MG TABLET PO SCH (08:34)
[2021-07-10] MEDS: METFORMIN HCL 500 MG TABLET PO SCH ×2 (08:34→17:08)
[2021-07-10] MEDS: METOPROLOL TARTRATE 25 MG TABLET PO SCH ×2 (08:34→17:09)
[2021-07-10] MEDS: DIVALPROEX 500 MG TABLET.DR PO SCH ×3 (08:34→20:04)
[2021-07-10] MEDS: GLUCERNA SHAKE VANILLA 237 ML CAN PO SCH ×3 (08:35→17:09)
[2021-07-10] MEDS: AMLODIPINE 10 MG TABLET PO SCH (08:35)
[2021-07-10] MEDS: FLUTICASONE/VILANTEROL 1 EACH BLST.W.DEV IH SCH (08:35)
[2021-07-10 16:43] VITALS: BP 125/68
[2021-07-10 20:00] VITALS: BP 128/60
[2021-07-10] MEDS: TAMSULOSIN HCL 0.4 MG CAP.SR.24H PO SCH (20:04)
[2021-07-10] MEDS: ATORVASTATIN 20 MG TABLET PO SCH (20:04)
[2021-07-10] MEDS: CLOZAPINE 100 MG TABLET PO SCH (20:04)
[2021-07-10] MEDS: SENNOSIDES/DOCUSATE SODIUM TABLET PO SCH (20:09)
--- NOTE | 2021-07-11 06:31 | NUR ---
REMAIN CALM WITH MEDS AND CARE ,BUT DISORGANIZED. NO AGITATION NOTED. PLEASANT UPON APPROACH. SLEPT 7 HRS THROUH THE NIGHT. CONTINUE PLAN OF CARE.
[2021-07-11 08:32] VITALS: BP 135/71
[2021-07-11] MEDS: METFORMIN HCL 500 MG TABLET PO SCH ×2 (09:24→17:38)
[2021-07-11] MEDS: LINAGLIPTIN 5 MG TABLET PO SCH (09:24)
[2021-07-11] MEDS: DIVALPROEX 500 MG TABLET.DR PO SCH ×3 (09:24→20:05)
[2021-07-11] MEDS: METOPROLOL TARTRATE 25 MG TABLET PO SCH ×2 (09:25→17:39)
[2021-07-11] MEDS: AMLODIPINE 10 MG TABLET PO SCH (09:25)
[2021-07-11] MEDS: FLUTICASONE/VILANTEROL 1 EACH BLST.W.DEV IH SCH (09:26)
[2021-07-11] MEDS: GLUCERNA SHAKE VANILLA 237 ML CAN PO SCH ×3 (09:35→17:45)
[2021-07-11 16:19] VITALS: BP 129/60
[2021-07-11 20:00] VITALS: BP 137/66
[2021-07-11] MEDS: CLOZAPINE 100 MG TABLET PO SCH (20:04)
[2021-07-11] MEDS: TAMSULOSIN HCL 0.4 MG CAP.SR.24H PO SCH (20:05)
[2021-07-11] MEDS: SENNOSIDES/DOCUSATE SODIUM TABLET PO SCH (20:06)
[2021-07-11] MEDS: ATORVASTATIN 20 MG TABLET PO SCH (20:06)
[2021-07-12 07:46] VITALS: BP 136/75
[2021-07-12] MEDS: LINAGLIPTIN 5 MG TABLET PO SCH (08:26)
[2021-07-12] MEDS: METFORMIN HCL 500 MG TABLET PO SCH ×2 (08:26→17:04)
[2021-07-12] MEDS: AMLODIPINE 10 MG TABLET PO SCH (08:27)
[2021-07-12] MEDS: FLUTICASONE/VILANTEROL 1 EACH BLST.W.DEV IH SCH (08:28)
[2021-07-12] MEDS: DIVALPROEX 500 MG TABLET.DR PO SCH ×3 (08:28→20:11)
[2021-07-12] MEDS: METOPROLOL TARTRATE 25 MG TABLET PO SCH ×2 (08:28→17:04)
[2021-07-12] MEDS: GLUCERNA SHAKE VANILLA 237 ML CAN PO SCH ×3 (08:29→17:05)
[2021-07-12 16:15] VITALS: BP 141/62
[2021-07-12] MEDS: SENNOSIDES/DOCUSATE SODIUM TABLET PO SCH (20:09)
[2021-07-12] MEDS: TAMSULOSIN HCL 0.4 MG CAP.SR.24H PO SCH (20:10)
[2021-07-12] MEDS: CLOZAPINE 100 MG TABLET PO SCH (20:10)
[2021-07-12] MEDS: ATORVASTATIN 20 MG TABLET PO SCH (20:11)
[2021-07-12 20:17] VITALS: BP 144/67
[2021-07-13 07:43] VITALS: BP 114/56
[2021-07-13 09:13] VITALS: BP 114/56
[2021-07-13] MEDS: METFORMIN HCL 500 MG TABLET PO SCH (09:13)
[2021-07-13] MEDS: AMLODIPINE 10 MG TABLET PO SCH (09:13)
[2021-07-13] MEDS: METOPROLOL TARTRATE 25 MG TABLET PO SCH (09:13)
[2021-07-13] MEDS: LINAGLIPTIN 5 MG TABLET PO SCH (09:13)
[2021-07-13] MEDS: DIVALPROEX 500 MG TABLET.DR PO SCH (09:13)
[2021-07-13] MEDS: FLUTICASONE/VILANTEROL 1 EACH BLST.W.DEV IH SCH (09:14)
[2021-07-13] MEDS: GLUCERNA SHAKE VANILLA 237 ML CAN PO SCH (09:15)
--- NOTE | 2021-07-13 09:20 | NUR ---
AJAY Discharge Note: Pt will be discharged to [facility] via facility transportation at 11AM. AJAY spoke with admin coordinator, Oly ([phone]) at the facility who states they are ready to accept the patient today. Pt is aware and agreeable with discharge plans. Pt is alert and oriented x2, is unable to plan for self-care at this time; however, is willing to accept care at returning facility. Pt denies any suicidal or homicidal ideation. Pt will follow-up at the facility with Psychiatrist, Dr. Charles and Debug Technician, Dr. Suresh. Pt will also follow-up with his Psychiatrist outside of the facility, Dr. Quintanilla. Pt presents with calm mood and congruent affect.
--- NOTE | 2021-07-13 11:00 | NUR ---
GPS: Nursing Notes: Discharge Notes: Patient is awake and responding to his name, cooperative with nursing care, compliant with his medications, following staff directions, denies SI/HI, denies AH/VH, denies pain or discomfort, denies SOB, discharge to [facility] at [address] [place] [address] , took all his belongings with him, report given to YULIA Orellana bottle house cleaners supervisor at facility, picked up by facility's own transportation. Patient's sister - Jaqueline informed of discharge by social work supervisor. Pt will follow-up at the facility with Psychiatrist, Dr. Charles and [employer], Dr. Suresh. Pt will also follow-up with his Psychiatrist outside of the facility, Dr. Quintanilla.
== END 2021-07-13 11:00 | DRG 885 ==
LOC: ER 11:00 → GPS 14:31
PROVIDERS: ADMIT Nurse Practitioner Psychiatric/Mental Health; ATTEND Nurse Practitioner Acute Care
DX: F25.9 Schizoaffective disorder, unspecified (principal); E11.65 Type 2 diabetes mellitus with hyperglycemia; D68.59 Other primary thrombophilia; E44.1 Mild protein-calorie malnutrition; E87.1 Hypo-osmolality and hyponatremia; E78.5 Hyperlipidemia, unspecified; E66.01 Morbid (severe) obesity due to excess calories; Z68.33 Body mass index [BMI] 33.0-33.9, adult; E86.0 Dehydration; E86.1 Hypovolemia; J44.9 Chronic obstructive pulmonary disease, unspecified; N40.0 Benign prostatic hyperplasia without lower urinary tract symptoms; Z20.822 Contact with and (suspected) exposure to COVID-19; E88.09 Other disorders of plasma-protein metabolism, not elsewhere classified; F17.210 Nicotine dependence, cigarettes, uncomplicated; Z79.84 Long term (current) use of oral hypoglycemic drugs; I10 Essential (primary) hypertension
CPT/HCPCS: 36415; 70030-TC; 80164; 84443; 85025; 93005; 97161; A4663; G0480